=== PATIENT | male | born 1970 | race Hispanic/Latino ===

== ENCOUNTER 2016-09-29 11:42 | Emergency (ER) | payer MEDICAID ==
[2016-09-29 12:44] VITALS: BP 137/91
--- NOTE | 2016-09-29 13:20 | Cat Scan Report ---
CT HEAD WITHOUT CONTRAST: HISTORY: Head injury. Serial contiguous axial images were obtained through the cranium. Intravenous contrast material was not administered. The ventricles are normal in size and appearance. There is no mass effect or midline shift. No areas of abnormally increased or decreased attenuation are seen. No mass lesion is seen. The mastoid air cells and visualized portions of the sinuses are normal. IMPRESSION: Cranial CT scan within normal limits.
[2016-09-29] MEDS ORDERED: TORADOL IM ONE (14:33)
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
== END 2016-09-29 14:53 | disposition home or self-care (01) ==
LOC: ED 11:42
DX: S00.83XA Contusion of other part of head, initial encounter (principal); Y04.0XXA Assault by unarmed brawl or fight, initial encounter; Y93.89 Activity, other specified; Y92.89 Other specified places as the place of occurrence of the external cause; Y99.8 Other external cause status; Z88.8 Allergy status to other drugs, medicaments and biological substances
CPT/HCPCS: 70450; 96372; 99283; J1885

== ENCOUNTER 2016-12-27 12:23 | Emergency (ER) | payer MEDICAID ==
[2016-12-27] MEDS ORDERED: NACL 0.9% 1000 ML 1,000 ML IV ONE (13:08)
[2016-12-27] MEDS ORDERED: ZOFRAN IV ONE (13:08)
--- NOTE | 2016-12-27 13:19 | Emergency Department Report ---
- General Chief Complaint: Upper Respiratory Infection Stated Complaint: FLU Time Seen by Provider: 12/27/16 12:49 Source: patient Mode of arrival: Ambulatory Limitations: No Limitations - History of Present Illness Initial Comments: This is a 46-year-old male nontoxic, well nourished in appearance, no acute signs of distress presents to the ED with c/o of productive cough, rhinorrhea, sore throat, body aches with nausea and vomiting x1 week. Patient denies any chest pain, hemoptysis, calf pain, calf tenderness, shortness of breathe, wheezing, numbness, tingling, fever, chills, headache, n/v, back pain, abdominal pain, dyruia. Patient denies sick contact. Patient denies any long car rides, recent hospital stays, or recent travels. Patient stated he get nausea and vomits only during coughing episode. Patient describes productive cough as yellow mucus production. Patient states allergies to Risperdal and haloperidol. PMH includes crow. MD Complaint: cough, sore throat, rhinorrhea, nasal congestion -: Gradual, week(s) (1) Severity: mild Severity scale (0 -10): 8 Quality: aching Consistency: constant Improves With: nothing Worsens With: nothing Associated Symptoms: denies other symptoms, rhinorrhea, nasal congestion, sore throat, cough. denies: fever, chills, myalgias, diaphoresis, headache, stiff neck, chest pain, shortness of breath, abdominal pain, nausea, vomiting, diarrhea, dysuria, rash, confusion, right sweats, weight loss, epistaxis, hoarseness, ear pain Treatments Prior to Arrival: none - Related Data Previous Rx's Medication Instructions Recorded Last Taken Type Ibuprofen [Motrin] 800 mg PO Q8HR PRN #20 tablet 09/29/16 Unknown Rx RX: Acetaminophen/Codeine [Tylenol 1 tab PO Q6H PRN #14 tab 09/29/16 Unknown Rx /Codeine # 3 tab] Benzonatate [Tessalon Perle] 100 mg PO Q8H #20 capsule 12/27/16 Unknown Rx Ondansetron [Zofran Odt] 4 mg PO Q8HR PRN #15 tab.rapdis 12/27/16 Unknown Rx RX: Azithromycin [Zithromax Z-JOYCE] 250 mg PO DAILY #6 tablet 12/27/16 Unknown Rx Allergies Allergy/AdvReac Type Severity Reaction Status Date / Time risperidone [From Risperdal] Allergy Angioedema Verified 09/29/16 12:37 haloperidol AdvReac Angioedema Verified 09/29/16 12:40 ED Review of Systems ROS: Stated complaint: FLU Other details as noted in HPI Constitutional: denies: chills, fever Eyes: denies: eye pain, eye discharge, vision change ENT: throat pain. denies: ear pain Respiratory: cough. denies: shortness of breath, wheezing Cardiovascular: denies: chest pain, palpitations Endocrine: no symptoms reported Gastrointestinal: denies: abdominal pain, nausea, diarrhea Genitourinary: denies: urgency, dysuria Musculoskeletal: denies: back pain, joint swelling, arthralgia Skin: denies: rash, lesions Neurological: denies: headache, weakness, paresthesias Psychiatric: denies: anxiety, depression Hematological/Lymphatic: denies: easy bleeding, easy bruising ED Past Medical Hx - Past Medical History Previous Medical History?: Yes Hx Psychiatric Treatment: Yes - Surgical History Past Surgical History?: No - Social History Smoking Status: Current Every Day Smoker Substance Use Type: None - Medications Home Medications: Home Medications Medication Instructions Recorded Confirmed Last Taken Type Ibuprofen [Motrin] 800 mg PO Q8HR PRN #20 tablet 09/29/16 Unknown Rx RX: Acetaminophen/Codeine [Tylenol 1 tab PO Q6H PRN #14 tab 09/29/16 Unknown Rx /Codeine # 3 tab] Benzonatate [Tessalon Perle] 100 mg PO Q8H #20 capsule 12/27/16 Unknown Rx Ondansetron [Zofran Odt] 4 mg PO Q8HR PRN #15 tab.rapdis 12/27/16 Unknown Rx RX: Azithromycin [Zithromax Z-JOYCE] 250 mg PO DAILY #6 tablet 12/27/16 Unknown Rx ED Physical Exam - General Limitations: No Limitations General appearance: alert, in no apparent distress - Head Head exam: Present: atraumatic, normocephalic, normal inspection - Eye Eye exam: Present: normal appearance, PERRL, EOMI. Absent: scleral icterus, conjunctival injection, nystagmus, periorbital swelling, periorbital tenderness Pupils: Present: normal accommodation - ENT ENT exam: Present: mucous membranes moist, TM's normal bilaterally, normal external ear exam - Expanded ENT Exam Expanded Ear exam: Present: normal external inspection Mouth exam: Present: normal external inspection, tongue normal. Absent: drooling, trismus, muffled voice, tongue elevation, laceration Teeth exam: Present: normal inspection Throat exam: Positive: tonsillar erythema, other (Uvula midline. No abscess or swelling noted. ). Negative: tonsillomegaly, tonsillar exudate, R peritonsillar mass, L peritonsillar mass - Neck Neck exam: Present: normal inspection, full ROM. Absent: tenderness, meningismus, lymphadenopathy, thyromegaly - Respiratory Respiratory exam: Present: normal lung sounds bilaterally. Absent: respiratory distress, wheezes, rales, rhonchi, stridor, chest wall tenderness, accessory muscle use, decreased breath sounds, prolonged expiratory - Cardiovascular Cardiovascular Exam: Present: regular rate, normal rhythm, normal heart sounds. Absent: irregular rhythm, systolic murmur, diastolic murmur, rubs, gallop - GI/Abdominal GI/Abdominal exam: Present: soft, normal bowel sounds. Absent: distended, tenderness, guarding, rebound, rigid, diminished bowel sounds - Expanded GI/Abdominal Exam Expanded GI/Abdominal exam: Absent: psoas sign, obturator sign, heel tap sign, Calderon's sign, Rovsing's sign, tenderness at Mcburney's Point - Rectal Rectal exam: Present: deferred - Extremities Exam Extremities exam: Present: normal inspection, full ROM, normal capillary refill. Absent: tenderness, pedal edema, joint swelling, calf tenderness - Back Exam Back exam: Present: normal inspection, full ROM. Absent: tenderness, CVA tenderness (R), CVA tenderness (L), muscle spasm, paraspinal tenderness, vertebral tenderness, rash noted - Neurological Exam Neurological exam: Present: alert, oriented X3, CN II-XII intact, normal gait, reflexes normal - Psychiatric Psychiatric exam: Present: normal affect, normal mood - Skin Skin exam: Present: warm, dry, intact, normal color. Absent: rash - Other Other exam information: Negative holmans test. No calf pain or tenderness. ED Course Vital Signs 12/27/16 12/27/16 12/27/16 12:34 14:29 14:32 Temperature 99.1 F 99.6 F Pulse Rate 111 H 86 Respiratory 16 Rate Blood Pressure 138/95 114/82 O2 Sat by Pulse 95 96 Oximetry - Reevaluation(s) Reevaluation #1: 12/27/16 13:21 Patient is speaking in full sentences with no signs of distress noted. ED Medical Decision Making - Lab Data Result diagrams: 12/27/16 13:22 12/27/16 13:22 - Medical Decision Making This is a 46-year-old male that presents with n/v and upper resp infection. Patient was examined by me and patient is stable. Xray has been obtained and dictated by radiologist with normal exam. Patient received 1L of Normal saline which heart rate decreased before d/c. No signs or symptoms of wheezing, calf pain, calf tenderness. No hemaotysis. Patient also received Zofran and PO challenge obtained with no signs of nausea or vomiting. Patient will be treated with zpak at d/c. Patient also received zofran at d/c. Patient was instructed to follow-up with a Primary care doctor in 24 hours or if symptoms worsen such as shortness of breathe, difficulty breathing, or any worsening as symptoms he must return to the ED as soon as possible. At time time of discharge, the patient does not seem toxic or ill in appearance. No acute signs of distress noted. Patient agrees to discharge treatment plan of care. No further questions noted by the patient. Patient was also instructed to increase hydration. Influanza swab negative. Critical care attestation.: If time is entered above; I have spent that time in minutes in the direct care of this critically ill patient, excluding procedure time. ED Disposition Clinical Impression: Upper respiratory infection Qualifiers: URI type: unspecified URI Qualified Code(s): J06.9 - Acute upper respiratory infection, unspecified Disposition: DC-01 TO HOME OR SELFCARE Is pt being admited?: No Does the pt Need Aspirin: No Condition: Stable Instructions: Azithromycin (By mouth), Liquids and Hydration for Athletes (ED) , Upper Respiratory Infection (ED), Benzonatate (By mouth), Ondansetron ( Injection) Additional Instructions: Follow-up with a Primary care doctor in 24 hours or if symptoms worsen such as shortness of breathe, difficulty breathing, or any worsening as symptoms you must return to the ED as soon as possible Increase hydration. Prescriptions: RX: Azithromycin [Zithromax Z-JOYCE] 250 mg PO DAILY #6 tablet Benzonatate [Tessalon Perle] 100 mg PO Q8H #20 capsule Ondansetron [Zofran Odt] 4 mg PO Q8HR PRN #15 tab.rapdis PRN Reason: Nausea Referrals: JOLEEN TRIPP MD [Staff Physician] - 3-5 Days PRIMARY CARE, [Primary Care Provider] - 3-5 Days [facility] [Outside] - 3-5 Days [facility] [Outside] - 3-5 Days Forms: Work/School Release Form(ED)
[2016-12-27 14:04] LABS: Albumin 3.1 g/dL (3.9-5); BUN/Creatinine Ratio 10; Blood Urea Nitrogen 8 mg/dL (9-20); Calcium 7.7 mg/dL (8.4-10.2); Carbon Dioxide 19 mmol/L (22-30); Chloride 103.2 mmol/L (98-107); Glucose 94 mg/dL (75-100); Sodium 137 mmol/L (137-145); Total Protein 6.2 g/dL (6.3-8.2)
[2016-12-27 14:05] LABS: Alanine Aminotransferase 10 units/L (7-56); Anion Gap 20 mmol/L
[2016-12-27 14:06] LABS: Alkaline Phosphatase 76 units/L (35-129); Potassium 5.3 mmol/L (3.6-5.0)
[2016-12-27 14:20] LABS: Hemoglobin 13.9 gm/dl (11.8-15.2); Red Blood Count 4.47 M/mm3 (3.65-5.03); White Blood Count 8.5 K/mm3 (4.5-11.0)
[2016-12-27 14:21] LABS: Basophils % (Auto) 1.1 % (0.0-1.8); Hematocrit 41.3 % (35.5-45.6); Mean Corpuscular HGB Conc 34 % (32-34); Mean Corpuscular Hemoglobin 31 pg (28-32); Mean Corpuscular Volume 92 fl (84-94); Red Cell Distribution Width 12.7 % (13.2-15.2)
[2016-12-27 14:32] VITALS: BP 114/82
--- NOTE | 2016-12-27 14:44 | XRay Report ---
Chest 2 views: History: Productive cough. Findings: Normal cardiomediastinal silhouette. Trachea is midline. No consolidation, pneumothorax or pleural effusion. Impression: No acute cardiopulmonary findings.
[2016-12-27 15:12] LABS: Platelet Count 221 K/mm3 (140-440)
== END 2016-12-27 15:25 | disposition home or self-care (01) ==
LOC: ED 12:23
DX: J06.9 Acute upper respiratory infection, unspecified (principal); F17.200 Nicotine dependence, unspecified, uncomplicated; Z88.8 Allergy status to other drugs, medicaments and biological substances
CPT/HCPCS: 36415; 71020; 80053; 85025; 87400; 96361; 96374; 99284; J2405; J7030

== ENCOUNTER 2017-03-29 11:06 | Emergency (ER) | payer MEDICAID ==
[2017-03-29 12:16] VITALS: BP 100/70
[2017-03-29] MEDS ORDERED: KEPPRA PO ONE (13:26)
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
== END 2017-03-29 13:45 | disposition home or self-care (01) ==
LOC: ED 11:06
DX: Z76.0 Encounter for issue of repeat prescription (principal); F17.200 Nicotine dependence, unspecified, uncomplicated
CPT/HCPCS: 99282

== ENCOUNTER 2017-05-13 11:21 | Emergency (ER) | payer MEDICAID ==
[2017-05-13 11:32] VITALS: BP 141/113
[2017-05-13 12:52] LABS: Bilirubin,Urine NEG (Negative); Blood,Urine NEG (Negative); Color,Urine Yellow (Yellow); Mucus,Urine FEW /HPF; Protein,Urine <15 mg/dL mg/dL (Negative); Urobilinogen,Urine < 2.0 mg/dL (<2.0)
== END 2017-05-13 12:15 | disposition left against medical advice (07) ==
LOC: ED 11:21
DX: R11.2 Nausea with vomiting, unspecified (principal); Z53.21 Procedure and treatment not carried out due to patient leaving prior to being seen by health care provider
CPT/HCPCS: 81001

== ENCOUNTER 2017-05-14 05:31 | Emergency (ER) | payer MEDICAID ==
[2017-05-14 06:35] LABS: Basophils % (Auto) 0.6 % (0.0-1.8); Eosinophils # (Auto) 0.1 K/mm3 (0.0-0.4); Eosinophils % (Auto) 1.3 % (0.0-4.3); Hematocrit 46.6 % (35.5-45.6); Hemoglobin 15.7 gm/dl (11.8-15.2); Lymphocytes # (Auto) 1.7 K/mm3 (1.2-5.4); Lymphocytes % (Auto) 20.7 % (13.4-35.0); Mean Corpuscular HGB Conc 34 % (32-34); Mean Corpuscular Hemoglobin 31 pg (28-32); Mean Corpuscular Volume 93 fl (84-94); Monocytes # (Auto) 0.4 K/mm3 (0.0-0.8); Monocytes % (Auto) 5.2 % (0.0-7.3); Platelet Count 216 K/mm3 (140-440); Red Blood Count 5.02 M/mm3 (3.65-5.03); Red Cell Distribution Width 13.3 % (13.2-15.2)
[2017-05-14 06:52] LABS: Alanine Aminotransferase 12 units/L (7-56); Albumin 3.9 g/dL (3.9-5); BUN/Creatinine Ratio 11; Blood Urea Nitrogen 10 mg/dL (9-20); Calcium 8.7 mg/dL (8.4-10.2); Hemolysis Index 13; Lipase 31 units/L (13-60)
[2017-05-14] MEDS ORDERED: ZOFRAN IV ONE (07:57)
[2017-05-14] MEDS ORDERED: NACL 0.9% 1000 ML 1,000 ML IV ONE (07:57)
--- NOTE | 2017-05-14 07:57 | Emergency Department Report ---
ED General Adult HPI - General Chief complaint: Nausea/Vomiting/Diarrhea Stated complaint: NAUSEA,VOMITING Time Seen by Provider: 05/14/17 07:54 Source: patient, EMS Mode of arrival: Stretcher Limitations: No Limitations - Related Data Previous Rx's Medication Instructions Recorded Last Taken Type Acetaminophen/Codeine [Tylenol 1 tab PO Q6H PRN #14 tab 09/29/16 Unknown Rx /Codeine # 3 tab] Ibuprofen [Motrin] 800 mg PO Q8HR PRN #20 tablet 09/29/16 Unknown Rx Azithromycin [Zithromax Z-JOYCE] 250 mg PO DAILY #6 tablet 12/27/16 Unknown Rx Benzonatate [Tessalon Perle] 100 mg PO Q8H #20 capsule 12/27/16 Unknown Rx Ondansetron [Zofran Odt] 4 mg PO Q8HR PRN #15 tab.rapdis 12/27/16 Unknown Rx Quetiapine Fumarate [Seroquel] 300 mg PO BID #30 tablet 03/29/17 Unknown Rx Allergies Allergy/AdvReac Type Severity Reaction Status Date / Time risperidone [From Risperdal] Allergy Angioedema Verified 09/29/16 12:37 haloperidol AdvReac Angioedema Verified 09/29/16 12:40 ED Review of Systems ROS: Stated complaint: NAUSEA,VOMITING Other details as noted in HPI ED Past Medical Hx - Past Medical History Previous Medical History?: Yes Hx Seizures: Yes Hx Psychiatric Treatment: Yes Additional medical history: Schizophrenia, PTSD - Surgical History Hx Appendectomy: Yes - Social History Smoking Status: Current Every Day Smoker Substance Use Type: Alcohol - Medications Home Medications: Home Medications Medication Instructions Recorded Confirmed Last Taken Type Acetaminophen/Codeine [Tylenol 1 tab PO Q6H PRN #14 tab 09/29/16 Unknown Rx /Codeine # 3 tab] Ibuprofen [Motrin] 800 mg PO Q8HR PRN #20 tablet 09/29/16 Unknown Rx Azithromycin [Zithromax Z-JOYCE] 250 mg PO DAILY #6 tablet 12/27/16 Unknown Rx Benzonatate [Tessalon Perle] 100 mg PO Q8H #20 capsule 12/27/16 Unknown Rx Ondansetron [Zofran Odt] 4 mg PO Q8HR PRN #15 tab.rapdis 12/27/16 Unknown Rx Quetiapine Fumarate [Seroquel] 300 mg PO BID #30 tablet 03/29/17 Unknown Rx ED Physical Exam - General Limitations: No Limitations ED Course Vital Signs 05/14/17 05:42 Temperature 97.6 F Pulse Rate 108 H Respiratory 16 Rate Blood Pressure 109/82 O2 Sat by Pulse 97 Oximetry ED Medical Decision Making - Lab Data Result diagrams: 05/14/17 05:49 05/14/17 05:49 Laboratory Results - last 24 hr 05/14/17 05/14/17 05/14/17 05:49 05:49 05:49 WBC 8.1 RBC 5.02 Hgb 15.7 H Hct 46.6 H MCV 93 MCH 31 MCHC 34 RDW 13.3 Plt Count 216 Lymph % (Auto) 20.7 [place] % (Auto) 5.2 Eos % (Auto) 1.3 Baso % (Auto) 0.6 Lymph # 1.7 [place] # 0.4 Eos # 0.1 Baso # 0.0 Seg Neutrophils % 72.2 H Seg Neutrophils # 5.9 Sodium 140 Potassium 3.8 Chloride 104.1 Carbon Dioxide 19 L Anion Gap 21 BUN 10 Creatinine 0.9 Estimated GFR > 60 BUN/Creatinine Ratio 11 Glucose 107 H Calcium 8.7 Total Bilirubin 0.20 AST 15 ALT 12 Alkaline Phosphatase 97 Total Protein 7.0 Albumin 3.9 Albumin/Globulin Ratio 1.3 Lipase 31 Plasma/Serum Alcohol < 0.01 Critical care attestation.: If time is entered above; I have spent that time in minutes in the direct care of this critically ill patient, excluding procedure time. ED Disposition Condition: Stable
[2017-05-14] MEDS ORDERED: TORADOL IV ONE (08:06)
--- NOTE | 2017-05-14 08:11 | Emergency Department Report ---
ED Abdominal Pain HPI - General Chief Complaint: Nausea/Vomiting/Diarrhea Stated Complaint: NAUSEA,VOMITING Time Seen by Provider: 05/14/17 07:54 Source: patient, EMS Mode of arrival: Stretcher Limitations: No Limitations - History of Present Illness Initial Comments: This is a 46-year-old male nontoxic, well nourished in appearance, no acute signs of distress presents to the ED with c/o of nausea, vomiting, and abdominal pain 5 days. Patient stated he started to feel better last night and decided to go to a bar to have a drink and then vomiting has started again. Patient stated he vomited food contents that about 5-7 times. Patient denies decreased by mouth intake or unable to tolerate food or fluids. Denies any chest pain, shortness of breath, back pain, fever, chills, headache, stiff neck , numbness, tingling. Past medical history includes schizophrenia, PTSD, and seizures. Surgical history of appendectomy. Patient states allergies to Risperidone and haloperidol. Denies any recent travels or long car rides. Last bowel movement this morning and no blood consistency. MD Complaint: abdominal pain -: days(s) (5) Location: diffuse Radiation: none Migration to: no migration Severity: mild Severity scale (0 -10): 8 Quality: aching Consistency: intermittent Improves With: nothing Worsens With: nothing Associated Symptoms: nausea, vomiting. denies: diarrhea, fever, chills, constipation, dysuria, hematemesis, hematochezia, melena, hematuria, anorexia, syncope - Related Data Previous Rx's Medication Instructions Recorded Last Taken Type Acetaminophen/Codeine [Tylenol 1 tab PO Q6H PRN #14 tab 09/29/16 Unknown Rx /Codeine # 3 tab] Ibuprofen [Motrin] 800 mg PO Q8HR PRN #20 tablet 09/29/16 Unknown Rx Azithromycin [Zithromax Z-JOYCE] 250 mg PO DAILY #6 tablet 12/27/16 Unknown Rx Benzonatate [Tessalon Perle] 100 mg PO Q8H #20 capsule 12/27/16 Unknown Rx Ondansetron [Zofran Odt] 4 mg PO Q8HR PRN #15 tab.rapdis 12/27/16 Unknown Rx Quetiapine Fumarate [Seroquel] 300 mg PO BID #30 tablet 03/29/17 Unknown Rx Ondansetron [Zofran Odt] 4 mg PO Q8HR PRN #15 tab.rapdis 05/14/17 Unknown Rx Allergies Allergy/AdvReac Type Severity Reaction Status Date / Time risperidone [From Risperdal] Allergy Angioedema Verified 05/14/17 08:42 haloperidol AdvReac Angioedema Verified 05/14/17 08:42 ED Review of Systems ROS: Stated complaint: NAUSEA,VOMITING Other details as noted in HPI Constitutional: denies: chills, fever Eyes: denies: eye pain, eye discharge, vision change ENT: denies: ear pain, throat pain Respiratory: denies: cough, shortness of breath, wheezing Cardiovascular: denies: chest pain, palpitations Endocrine: no symptoms reported Gastrointestinal: abdominal pain, nausea, vomiting. denies: diarrhea, constipation Genitourinary: denies: urgency, dysuria Musculoskeletal: denies: back pain, joint swelling, arthralgia Skin: denies: rash, lesions Neurological: denies: headache, weakness, paresthesias Psychiatric: denies: anxiety, depression Hematological/Lymphatic: denies: easy bleeding, easy bruising ED Past Medical Hx - Past Medical History Previous Medical History?: Yes Hx Seizures: Yes Hx Psychiatric Treatment: Yes Additional medical history: Schizophrenia, PTSD - Surgical History Hx Appendectomy: Yes - Social History Smoking Status: Current Every Day Smoker Substance Use Type: Alcohol - Medications Home Medications: Home Medications Medication Instructions Recorded Confirmed Last Taken Type Acetaminophen/Codeine [Tylenol 1 tab PO Q6H PRN #14 tab 09/29/16 Unknown Rx /Codeine # 3 tab] Ibuprofen [Motrin] 800 mg PO Q8HR PRN #20 tablet 09/29/16 Unknown Rx Azithromycin [Zithromax Z-JOYCE] 250 mg PO DAILY #6 tablet 12/27/16 Unknown Rx Benzonatate [Tessalon Perle] 100 mg PO Q8H #20 capsule 12/27/16 Unknown Rx Ondansetron [Zofran Odt] 4 mg PO Q8HR PRN #15 tab.rapdis 12/27/16 Unknown Rx Quetiapine Fumarate [Seroquel] 300 mg PO BID #30 tablet 03/29/17 Unknown Rx Ondansetron [Zofran Odt] 4 mg PO Q8HR PRN #15 tab.rapdis 05/14/17 Unknown Rx ED Physical Exam - General Limitations: No Limitations General appearance: alert, in no apparent distress - Head Head exam: Present: atraumatic, normocephalic - Eye Eye exam: Present: normal appearance Pupils: Present: normal accommodation - ENT ENT exam: Present: normal exam, normal orophraynx, mucous membranes moist - Neck Neck exam: Present: normal inspection, full ROM. Absent: tenderness, meningismus, lymphadenopathy - Respiratory Respiratory exam: Present: normal lung sounds bilaterally. Absent: respiratory distress, wheezes, rales, rhonchi, stridor, chest wall tenderness, accessory muscle use, decreased breath sounds, prolonged expiratory - Cardiovascular Cardiovascular Exam: Present: regular rate, normal rhythm, normal heart sounds. Absent: irregular rhythm, systolic murmur, diastolic murmur, rubs, gallop - GI/Abdominal GI/Abdominal exam: Present: soft, tenderness (diffuse with more on RLQ), normal bowel sounds. Absent: distended, guarding, rebound, rigid, diminished bowel sounds, hyperactive bowel sounds, hypoactive bowel sounds, bruit - Expanded GI/Abdominal Exam Expanded GI/Abdominal exam: Absent: psoas sign, obturator sign, heel tap sign, Calderon's sign, Rovsing's sign, tenderness at Mcburney's Point, ascites - Rectal Rectal exam: Present: deferred - Extremities Exam Extremities exam: Present: normal inspection, full ROM, normal capillary refill - Back Exam Back exam: Present: normal inspection, full ROM - Neurological Exam Neurological exam: Present: alert, oriented X3, normal gait - Psychiatric Psychiatric exam: Present: normal affect, normal mood - Skin Skin exam: Present: warm, dry, intact, normal color. Absent: rash ED Course Vital Signs 05/14/17 05/14/17 05/14/17 05:42 09:06 09:08 Temperature 97.6 F 98.3 F Pulse Rate 108 H 91 H Respiratory 16 12 12 Rate Blood Pressure 109/82 Blood Pressure 122/80 [Right] O2 Sat by Pulse 97 98 98 Oximetry - Reevaluation(s) Reevaluation #1: 05/14/17 08:14 Patient is speaking in full sentences with no signs of distress noted. - Consultations Consultation #1: 05/14/17 08:14 Patient has been consulted with Dr. Cervantes about patient history, physical exam, and labs and agrees to ED plan of care. ED Medical Decision Making - Lab Data Result diagrams: 05/14/17 05:49 05/14/17 05:49 - Medical Decision Making This is a 47-year-old male that presents with abdominal pain, nausea vomiting. Patient is stable and was examined by me. Labs obtained within normal limits. UA obtained with positive methadone and marijuana. Patient received 1 L normal saline and Zofran which based symptoms has resolved. A by mouth challenge of apple juice 4 obtained and patient tolerated well with no nausea or vomiting. CT of abdomen/pelvis with contrast obtained and dictated by the radiologist within normal limits. Patient was instructed to increase hydration. Patient is discharged with Zofran. Patient was instructed referred to Follow-up with a primary care doctor in 3-5 days or if symptoms worsen and continue return to emergency room as soon as possible. At time of discharge, the patient does not seem toxic or ill in appearance. No acute signs of distress noted. Patient agrees to discharge treatment plan of care. No further questions noted by the patient. Critical care attestation.: If time is entered above; I have spent that time in minutes in the direct care of this critically ill patient, excluding procedure time. ED Disposition Clinical Impression: Abdominal pain Qualifiers: Abdominal location: generalized Qualified Code(s): R10.84 - Generalized abdominal pain Nausea and vomiting Qualifiers: Vomiting type: unspecified Vomiting Intractability: unspecified Qualified Code( s): R11.2 - Nausea with vomiting, unspecified Disposition: DC-01 TO HOME OR SELFCARE Is pt being admited?: No Does the pt Need Aspirin: No Condition: Stable Instructions: Abdominal Pain (ED), Acute Nausea and Vomiting (ED) Additional Instructions: Follow-up with a primary care doctor in 3-5 days or if symptoms worsen and continue return to emergency room as soon as possible. Prescriptions: Ondansetron [Zofran Odt] 4 mg PO Q8HR PRN #15 tab.rapdis PRN Reason: Nausea Referrals: PRIMARY CARE, [Primary Care Provider] - 3-5 Days JOLEEN TRIPP MD [Staff Physician] - 3-5 Days [facility] [Outside] - 3-5 Days [facility] [Outside] - 3-5 Days Forms: Work/School Release Form(ED)
[2017-05-14] MEDS ORDERED: NACL ONE (08:26)
[2017-05-14 08:49] LABS: Bilirubin,Urine NEG (Negative); Blood,Urine NEG (Negative); Color,Urine Yellow (Yellow); Mucus,Urine FEW /HPF; Urobilinogen,Urine < 2.0 mg/dL (<2.0); WBC,Urine < 1.0 /HPF (0.0-6.0)
[2017-05-14 09:03] LABS: Amphetamine Screen,Urine PRESUMPTIVE NEGATIVE; Benzodiazepines Screen,Urine PRESUMPTIVE NEGATIVE; Cocaine Screen,Urine PRESUMPTIVE NEGATIVE; Opiate Screen,Urine PRESUMPTIVE NEGATIVE
[2017-05-14 09:09] VITALS: BP 122/80
--- NOTE | 2017-05-14 09:12 | Cat Scan Report ---
FINAL REPORT EXAM: CT ABDOMEN PELVIS W CON HISTORY: abd pain TECHNIQUE: CT abdomen and pelvis performed. Images extend from diaphragm to pubic symphysis. 100 cc Omnipaque 300 IV was administered. No oral contrast was administered. Coronal and sagittal reformatted images were obtained. PRIORS: None. FINDINGS: The visualized aspects of the lung bases are clear. The visualized liver, spleen, pancreas, adrenal glands and kidneys demonstrate no significant abnormalities. There is no abdominal aortic aneurysm. There is no evidence of intestinal obstruction. Appendix not visualized. Patient likely status post appendectomy. There are no abnormal fluid collections seen. There is no evidence of focal or diffuse inflammatory abnormality. There is no free intraperitoneal air. The bladder is unremarkable. There is no abnormal pelvic mass or fluid collections seen. IMPRESSION: There is no acute abnormality identified.
[2017-05-14 09:23] LABS: Cannabinoid Screen,Urine PRESUMPTIVE POSITIVE; Methadone Screen,Urine PRESUMPTIVE POSITIVE
== END 2017-05-14 10:02 | disposition home or self-care (01) ==
LOC: ED 05:31
DX: R11.2 Nausea with vomiting, unspecified (principal); R10.84 Generalized abdominal pain; F17.200 Nicotine dependence, unspecified, uncomplicated; Z88.8 Allergy status to other drugs, medicaments and biological substances
CPT/HCPCS: 36415; 74177; 80053; 80307; 81001; 83690; 85025; 96361; 96374; 96375; 99284; G0480; J1885; J2405; J7030; Q9967; 80320

== ENCOUNTER 2017-09-05 19:21 | Emergency (ER) | payer MEDICAID ==
[2017-09-05] MEDS ORDERED: KEPPRA 1,000 MG/NS 0.75% 100ML 1,000 MG/100 ML BAG IV ONE (20:00)
[2017-09-05] MEDS ORDERED: ATIVAN IV ONE (20:00)
[2017-09-05] MEDS ORDERED: ATIVAN IV PRN (20:01)
[2017-09-05] MEDS ORDERED: LIBRIUM PO PRN (20:01)
--- NOTE | 2017-09-05 20:02 | Emergency Department Report ---
ED General Adult HPI - General Chief complaint: Seizure Stated complaint: SEIZURE Time Seen by Provider: 09/05/17 19:51 Source: patient, EMS (ems notes not available at time of chart dictation), RN notes reviewed Mode of arrival: Ambulatory Limitations: No Limitations, Other (patient has a chronic right upper extremity tremor) - History of Present Illness Initial comments: This is a 47-year-old male who is unknown to this provider previously. He reports a past medical history of seizure disorder, and reports taking Keppra, 500 mg twice daily. He also reports a history of alcohol abuse. His last drink was 2 weeks ago. He presents to the ER with a complaint of seizure. Patient reports that he was at [place], and began to have a seizure. His last seizure was a few days ago. He reports 45 seizures in the past 2 months. He endorses medication compliance. He denies headache and neck pain. He denies chest pain and abdominal pain. He denies urinary symptoms. He reports he is seeing a neurologist specialist in [place] but can't recall the name of that specialist. He denies irritative/obstructive urinary symptoms. EMS gave 2 mg of Ativan IV in the field which terminated his seizure. He complains of right paralumbar and paraspinal back pain where he landed from his fall from seizing. -: Sudden Location: back Radiation: non-radiation Quality: aching Consistency: intermittent Improves with: rest Worsens with: movement Associated Symptoms: malaise, weakness (global). denies: confusion, chest pain , cough, diaphoresis, fever/chills, headaches, loss of appetite, nausea/vomiting , rash, seizure, shortness of breath, syncope - Related Data Home Medications Medication Instructions Recorded Confirmed Last Taken clonazePAM [Klonopin] 0.5 mg PO QID 09/05/17 09/05/17 Unknown levETIRAcetam [Keppra] 500 mg PO BID 09/05/17 09/05/17 Unknown Allergies Allergy/AdvReac Type Severity Reaction Status Date / Time No Known Allergies Allergy Unverified 09/05/17 19:22 ED Review of Systems ROS: Stated complaint: SEIZURE Other details as noted in HPI Constitutional: malaise Eyes: denies: eye discharge ENT: denies: epistaxis Respiratory: denies: cough Cardiovascular: denies: chest pain, syncope Gastrointestinal: denies: vomiting Genitourinary: denies: dysuria Musculoskeletal: back pain, arthralgia Skin: denies: lesions Neurological: weakness Psychiatric: anxiety ED Past Medical Hx - Past Medical History Previous Medical History?: Yes Additional medical history: Pt unable to communicate to answer questions during triage - Social History Smoking Status: Current Every Day Smoker Substance Use Type: Alcohol - Medications Home Medications: Home Medications Medication Instructions Recorded Confirmed Last Taken Type clonazePAM [Klonopin] 0.5 mg PO QID 09/05/17 09/05/17 Unknown History levETIRAcetam [Keppra] 500 mg PO BID 09/05/17 09/05/17 Unknown History ED Physical Exam - General Limitations: No Limitations General appearance: alert, anxious - Head Head exam: Present: atraumatic, normocephalic - Eye Eye exam: Present: normal appearance, PERRL, EOMI, other (visual acuity intact to finger counting, color perception, reading at a close distance). Absent: nystagmus - ENT ENT exam: Present: normal exam, normal orophraynx, mucous membranes moist, TM's normal bilaterally, normal external ear exam, other (negative nasal septal hematoma) - Neck Neck exam: Present: normal inspection, full ROM. Absent: tenderness, meningismus - Respiratory Respiratory exam: Present: normal lung sounds bilaterally. Absent: respiratory distress - Cardiovascular Cardiovascular Exam: Present: regular rate, normal rhythm, normal heart sounds. Absent: bradycardia, tachycardia, irregular rhythm, systolic murmur, diastolic murmur, rubs, gallop - GI/Abdominal GI/Abdominal exam: Present: soft, normal bowel sounds. Absent: distended, tenderness, guarding, rebound, rigid, pulsatile mass - Rectal Rectal exam: Present: deferred - Extremities Exam Extremities exam: Present: normal inspection, full ROM, normal capillary refill , other (2+ pulses noted in the bilateral upper, lower extremities. Compartments soft. No long bony tenderness. The pelvis is stable.). Absent: pedal edema, joint swelling, calf tenderness - Back Exam Back exam: Present: normal inspection, full ROM, paraspinal tenderness. Absent : vertebral tenderness - Neurological Exam Neurological exam: Present: alert (patient has a chronic right upper extremity tremor), oriented X3, CN II-XII intact, other (Extraocular movements intact. Tongue midline. No facial droop. Facial sensation intact to light touch in the V1, V2, V3 distribution bilaterally. 5 and 5 strength in 4 extremities.. Sensation is intact to light touch in 4 extremities.). Absent: motor sensory deficit - Psychiatric Psychiatric exam: Present: normal affect, normal mood - Skin Skin exam: Present: warm, dry, intact, normal color. Absent: rash ED Course Vital Signs 09/05/17 09/05/17 21:09 21:24 Temperature 98.7 F Pulse Rate 91 H Respiratory 20 20 Rate Blood Pressure 118/77 [Left] O2 Sat by Pulse 98 Oximetry - Reevaluation(s) Reevaluation #1: 09/05/17 20:59 Differential diagnosis, including but not limited to: Intracranial injury, concussion, breakthrough seizure, urinary tract infection, electrolyte derangement, chronic right upper extremity tremor Assessment and plan: 47-year-old male with a breakthrough seizure, currently on antiepileptic drug therapy. He does not have tongue fasciculations. He is not diaphoretic, febrile or specially hypertensive. His last consumed alcohol was almost 2 weeks ago. This is unlikely to be alcohol withdrawal. A noncontrast CT scan of the brain is negative. Laboratory studies, EKG pending at this time. Patient will be treated empirically with 1 g of Keppra, his back pain which relieved with Toradol, he will be given a banana bag, and he 'll be started empirically on the ciwa protocol Reevaluation #2: 09/05/17 22:19 Patient acting somewhat bizarrely. Standing up in the room, asking about a telephone. When I asked him about this, his answer does not make any sense. He indicates he is looking for Dr. Cunha. He then indicates he is looking for Dr. Emanuel Perez. He seems to be quite disorganized. He's been awake the whole time, and while awake, has had some nonspecific shaking. However, during the shaking, he converses quite clearly. Possible postictal state versus psychiatric components. We will obtain psychiatric consultation and evaluation. We will also obtain a case management consult to assist in placement. Patient does not meet criteria for medical admission at this time. 09/05/17 22:22 Reevaluation #3: 09/05/17 23:31 Patient has another medical record number; [id number] Apparently has a history of schizophrenia, PTSD. Psychiatric consult is pending at this time. Reevaluation #4: 09/06/17 01:17 Patient continues to exhibit disorganized behavior. Furthermore, he endorsed to the crisis counselor, Mr. Gilson Goldsmith, and he was feeling suicidal. He is therefore placed on a 1013. No additional convulsive events or seizures have been noted. Vital signs have been appropriate and within normal limits. At this point in time, there is not appear to be an immediate medical contraindication to psychiatric admission, evaluation, consultation and placement. ED Medical Decision Making - Lab Data Result diagrams: 09/05/17 21:49 09/05/17 20:11 Lab Results 09/05/17 09/05/17 09/05/17 Range/Units 20:11 20:11 20:20 Urine Color Yellow (Yellow) Urine Turbidity Clear (Clear) Urine pH 7.0 (5.0-7.0) Ur Specific [place] 1.011 (1.003-1.030) Urine Protein <15 mg/dl (Negative) mg/dL Urine Glucose (UA) Neg (Negative) mg/dL Urine Ketones Neg (Negative) mg/dL Urine Blood Neg (Negative) Urine Nitrite Neg (Negative) Urine Bilirubin Neg (Negative) Urine Urobilinogen < 2.0 (<2.0) mg/dL Ur Leukocyte Esterase Neg (Negative) Urine WBC (Auto) 1.0 (0.0-6.0) /HPF Urine RBC (Auto) 2.0 (0.0-6.0) /HPF Urine Sperm Few (GROUND [employer] CHIEF) /HPF Urine Opiates Screen Urine Methadone Screen Acetaminophen < 5.0 L (10.0-30.0) ug/mL Ur Barbiturates Screen Ur Phencyclidine Scrn Ur Amphetamines Screen U Benzodiazepines Scrn Urine Cocaine Screen Plasma/Serum Alcohol < 0.01 (0-0.07) % 09/05/17 Range/Units 20:20 Urine Color (Yellow) Urine Turbidity (Clear) Urine pH (5.0-7.0) Ur Specific [place] (1.003-1.030) Urine Protein (Negative) mg/dL Urine Glucose (UA) (Negative) mg/dL Urine Ketones (Negative) mg/dL Urine Blood (Negative) Urine Nitrite (Negative) Urine Bilirubin (Negative) Urine Urobilinogen (<2.0) mg/dL Ur Leukocyte Esterase (Negative) Urine WBC (Auto) (0.0-6.0) /HPF Urine RBC (Auto) (0.0-6.0) /HPF Urine Sperm (GROUND CREW CHIEF) /HPF Urine Opiates Screen Presumptive negative Urine Methadone Screen Presumptive negative Acetaminophen (10.0-30.0) ug/mL Ur Barbiturates Screen Presumptive negative Ur Phencyclidine Scrn Presumptive negative Ur Amphetamines Screen Presumptive negative U Benzodiazepines Scrn Presumptive negative Urine Cocaine Screen Presumptive negative Plasma/Serum Alcohol (0-0.07) % - EKG Data EKG shows normal: sinus rhythm, axis, intervals, ST-T waves Rate: normal - EKG Data When compared to previous EKG there are: previous EKG unavailable Interpretation: normal EKG - Radiology Data Radiology results: report reviewed, image reviewed Noncontrast CT scan of the brain is negative for acute disease Critical care attestation.: If time is entered above; I have spent that time in minutes in the direct care of this critically ill patient, excluding procedure time. ED Disposition Clinical Impression: History of seizure, Mood disorder Disposition: DC/TX-65 PSY HOSP/PSY UNIT Is pt being admited?: No Does the pt Need Aspirin: No Condition: Good Referrals: PRIMARY CARE, [Primary Care Provider] - 3-5 Days
[2017-09-05 20:41] LABS: Bilirubin,Urine NEG (Negative); Blood,Urine NEG (Negative); Color,Urine Yellow (Yellow); Protein,Urine <15 mg/dL mg/dL (Negative); Sperm,Urine FEW /HPF (NP); Urobilinogen,Urine < 2.0 mg/dL (<2.0)
[2017-09-05 20:48] LABS: Amphetamine Screen,Urine PRESUMPTIVE NEGATIVE; Benzodiazepines Screen,Urine PRESUMPTIVE NEGATIVE; Cocaine Screen,Urine PRESUMPTIVE NEGATIVE; Methadone Screen,Urine PRESUMPTIVE NEGATIVE; Opiate Screen,Urine PRESUMPTIVE NEGATIVE
--- NOTE | 2017-09-05 20:52 | Cat Scan Report ---
FINAL REPORT PROCEDURE: CT HEAD/BRAIN WO CON TECHNIQUE: Computerized tomography of the head was performed without contrast material. HISTORY: Seizure COMPARISON: No prior studies are available for comparison. FINDINGS: Brain: Brain density appears normal. No evidence of intracranial hemorrhage. No parenchymal hemorrhage, mass lesions or mass effect are seen. No abnormal extraxial fluid collects or masses are seen. Ventricles: Ventricles are normal size and are midline. Bone Windows: No evidence of skull fracture. Paranasal sinuses: There is minimal mucosal thickening scattered in the left maxillary sinus. Paranasal sinuses otherwise appear clear. Mastoid air cells: Clear IMPRESSION: Negative unenhanced CT scan of the brain. Minimal paranasal sinus disease as described. If clinically indicated MRI of the brain could be obtained to evaluate for possible seizure focus.
[2017-09-05] MEDS ORDERED: TORADOL IV ONE (20:55)
[2017-09-05] MEDS ORDERED: VITAMIN B-1 100 MG, FOLVITE 1 MG, INFUVITE 10 ML in NACL 0.9% 1000 ML 1,000 ML IV ONE (21:01)
[2017-09-05 21:02] LABS: Cannabinoid Screen,Urine PRESUMPTIVE POSITIVE
[2017-09-05 21:09] LABS: BUN/Creatinine Ratio 8; Blood Urea Nitrogen 6 mg/dL (9-20); Calcium 8.7 mg/dL (8.4-10.2); Hemolysis Index 88
[2017-09-05 21:20] LABS: Hemoglobin TNR gm/dl (11.8-15.2); Red Blood Count TNR M/mm3 (3.65-5.03)
[2017-09-05 21:21] LABS: Hematocrit TNR % (35.5-45.6); Mean Corpuscular Volume TNR fl (84-94)
[2017-09-05 21:22] LABS: Mean Corpuscular HGB Conc TNR % (32-34); Mean Corpuscular Hemoglobin TNR pg (28-32)
[2017-09-05 21:23] LABS: Mean Platelet Volume TNR fl (6-12); Platelet Count TNR K/mm3 (140-440); Red Cell Distribution Width TNR % (13.2-15.2)
[2017-09-05] MEDS: ATIVAN IV PRN (21:25)
[2017-09-05 21:57] LABS: Hematocrit 40.5 % (35.5-45.6); Hemoglobin 13.8 gm/dl (11.8-15.2); Mean Corpuscular HGB Conc 34 % (32-34); Mean Corpuscular Hemoglobin 32 pg (28-32); Mean Corpuscular Volume 95 fl (84-94); Platelet Count 201 K/mm3 (140-440); Red Blood Count 4.26 M/mm3 (3.65-5.03); Red Cell Distribution Width 13.8 % (13.2-15.2)
[2017-09-05] MEDS ORDERED: ZOFRAN ODT PO PRN (22:24)
[2017-09-05] MEDS ORDERED: TYLENOL PO PRN (22:24)
[2017-09-06] MEDS ORDERED: HALDOL IM PRN (01:17)
[2017-09-06] MEDS ORDERED: ATIVAN IM PRN (01:17)
[2017-09-06] MEDS: ATIVAN IV PRN (01:20)
[2017-09-06] MEDS ORDERED: HALDOL IM ONE (02:46)
[2017-09-06] MEDS: KEPPRA PO SCH ×2 (09:30→22:17)
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
[2017-09-07 08:50] LABS: Lipase 37 units/L (13-60)
[2017-09-07 08:53] LABS: Alanine Aminotransferase 12 units/L (7-56)
--- NOTE | 2017-09-07 10:13 | Progress Note ---
Subjective - Reason for Consult Consult date: 09/07/17 Reason for consult: Psychiatry follow-up - Chief Complaint Chief complaint: "I want help" 7 year old WM who presents to the emergency room with a seizure disorder. He reports a past medical history of seizure disorder, and reports taking Keppra, 500 mg twice daily. Today the patient is calm and cooperative during the assessment. He stated that his "biggest" issue is his alcohol (etoh) addiction. He stated that he want to stop drinking because he is aware of the damage alcohol (etoh) can cause to his body. He stated that he is willing to attend rehab services when discharged. He denies SI/HI's and AVH's. He denies any side effects of his medications. Mental Status Exam - Vital signs Last Vital Signs Temp 98.5 F 09/06/17 20:06 Pulse 84 09/06/17 20:06 Resp 18 09/06/17 20:24 BP 124/86 09/06/17 20:06 Pulse Ox 97 09/06/17 20:24 - Exam Narrative exam: MSE: Appearance: calm, cooperative Behavior: regular eye contact Speech: regular rate and tone Mood: "okay" Affect: congruent to mood Thought Process: linear Thought Content: denies SI/HI's and AVH's Motor Activity: sitting up in bed Cognition: A/O x 3 Insight: appropriate Judgment: appropriate Assessment and Plan Impression: Hx of Scizoaffective DO per the record. Hx of Alcohol Use DO. Today the patient is calm and cooperative during the assessment. Observed mild tremors on assessment. Recommendation/Plan: Rescind 1013. Continue to assess the need for CIWA daily. Recommend Ativan PO for CIWA only at this time to prevent over sedation. Continue home medication Depakote 500 mg PO BID for mood and Seroquel 100 mg PO HS for mood. Discussed possible metabolic side effects of Seroquel with patient. He understand when to get labs drawn reference Depakote. The patient can follow up with [facility] for outpatient rehab/psy services. Also, the patient was referred to [facility] for rehab services that's located in [facility].
[2017-09-07] MEDS: KEPPRA PO SCH (10:37)
--- NOTE | 2017-09-07 13:52 | Emergency Department Report ---
HPI - General Chief Complaint: Seizure Time Seen by Provider: 09/05/17 19:51 ED Past Medical Hx - Past Medical History Previous Medical History?: Yes Additional medical history: Pt unable to communicate to answer questions during triage - Social History Smoking Status: Current Every Day Smoker Substance Use Type: Alcohol - Medications Home Medications: Home Medications Medication Instructions Recorded Confirmed Last Taken Type clonazePAM [Klonopin] 0.5 mg PO QID 09/05/17 09/05/17 Unknown History levETIRAcetam [Keppra] 500 mg PO BID 09/05/17 09/05/17 Unknown History ED Review of Systems ROS: Stated complaint: SEIZURE Other details as noted in HPI Constitutional: malaise Eyes: denies: eye discharge ENT: denies: epistaxis Respiratory: denies: cough Cardiovascular: denies: chest pain, syncope Gastrointestinal: denies: vomiting Genitourinary: denies: dysuria Musculoskeletal: back pain, arthralgia Skin: denies: lesions Neurological: weakness Psychiatric: anxiety Physical Exam - Physical Exam Vital Signs: Vital Signs 09/05/17 09/05/17 09/05/17 19:57 20:00 20:15 Temperature Pulse Rate 89 90 83 Respiratory 15 12 10 L Rate Blood Pressure 113/80 97/70 Blood Pressure [Left] O2 Sat by Pulse 87 97 Oximetry 09/05/17 09/05/17 09/05/17 20:32 20:45 21:00 Temperature Pulse Rate 73 Respiratory 17 Rate Blood Pressure 113/80 113/80 113/80 Blood Pressure [Left] O2 Sat by Pulse 97 84 Oximetry 09/05/17 09/05/17 09/06/17 21:09 21:24 00:06 Temperature 98.7 F Pulse Rate 91 H 65 Respiratory 20 20 11 L Rate Blood Pressure 113/80 Blood Pressure 118/77 [Left] O2 Sat by Pulse 98 Oximetry 09/06/17 09/06/17 09/06/17 01:00 02:37 08:14 Temperature Pulse Rate 57 L Respiratory 10 L 20 20 Rate Blood Pressure 116/77 Blood Pressure [Left] O2 Sat by Pulse 98 100 100 Oximetry 09/06/17 09/06/17 09/06/17 09:26 20:06 20:24 Temperature 97.9 F 98.5 F Pulse Rate 80 84 Respiratory 18 18 18 Rate Blood Pressure 124/86 Blood Pressure 114/90 [Left] O2 Sat by Pulse 97 97 97 Oximetry ED Course Vital Signs 09/05/17 09/05/17 09/05/17 19:57 20:00 20:15 Temperature Pulse Rate 89 90 83 Respiratory 15 12 10 L Rate Blood Pressure 113/80 97/70 Blood Pressure [Left] O2 Sat by Pulse 87 97 Oximetry 09/05/17 09/05/17 09/05/17 20:32 20:45 21:00 Temperature Pulse Rate 73 Respiratory 17 Rate Blood Pressure 113/80 113/80 113/80 Blood Pressure [Left] O2 Sat by Pulse 97 84 Oximetry 09/05/17 09/05/17 09/06/17 21:09 21:24 00:06 Temperature 98.7 F Pulse Rate 91 H 65 Respiratory 20 20 11 L Rate Blood Pressure 113/80 Blood Pressure 118/77 [Left] O2 Sat by Pulse 98 Oximetry 09/06/17 09/06/17 09/06/17 01:00 02:37 08:14 Temperature Pulse Rate 57 L Respiratory 10 L 20 20 Rate Blood Pressure 116/77 Blood Pressure [Left] O2 Sat by Pulse 98 100 100 Oximetry 09/06/17 09/06/17 09/06/17 09:26 20:06 20:24 Temperature 97.9 F 98.5 F Pulse Rate 80 84 Respiratory 18 18 18 Rate Blood Pressure 124/86 Blood Pressure 114/90 [Left] O2 Sat by Pulse 97 97 97 Oximetry - Reevaluation(s) Reevaluation #1: 09/07/17 13:46 Patient was evaluated by psychiatry this morning. Psychiatry recommended discharging patient home to follow-up with his primary doctor. I reevaluated patient prior to discharge, patient denies suicidal or homicidal ideation. He said he had a seizure and was brought to the hospital and he never said he was suicidal. The 1013 form has been rescinded by the psychiatric mid level provider this morning. Patient is appropriate and oriented. He was able to answer all my questions correctly. I will go ahead and discharge him as recommended by the psychiatric team. Patient does not look to be a danger to himself or to others based on my recent assessment. ED Medical Decision Making - Lab Data Result diagrams: 09/05/17 21:49 09/05/17 20:11 Critical care attestation.: If time is entered above; I have spent that time in minutes in the direct care of this critically ill patient, excluding procedure time. ED Disposition Clinical Impression: Seizure disorder, Marijuana abuse Disposition: DC-01 TO HOME OR SELFCARE Is pt being admited?: No Does the pt Need Aspirin: No Condition: Good Instructions: Recurrent Seizures Adult (ED) Additional Instructions: Follow up with your regular doctor tomorrow morning. Return to the ED if your condition worsens. Referrals: PRIMARY CARE, [Primary Care Provider] - 3-5 Days Time of Disposition: 13:45
[2017-09-07 14:03] VITALS: BP 112/82
== END 2017-09-07 14:19 | disposition home or self-care (01) ==
LOC: MERGE 19:21 → EEVIPCON 19:21 → ED 19:21
DX: G40.909 Epilepsy, unspecified, not intractable, without status epilepticus (principal); F39 Unspecified mood [affective] disorder; F17.200 Nicotine dependence, unspecified, uncomplicated
CPT/HCPCS: 36415; 70450; 80048; 80307; 81001; 82150; 82550; 82962; 83690; 83735; 84075; 84450; 84460; 85027; 93005; 93010; 96365; 96368; 96372; 96375; 96376; 99285; G0480; J1630; J1885; J1953; J2060; J3411; J7030; 80320; 96367; Q0162

== ENCOUNTER 2017-09-16 20:02 | Emergency (ER) | payer MEDICAID ==
[2017-09-16 20:51] LABS: BUN/Creatinine Ratio 13; Blood Urea Nitrogen 12 mg/dL (9-20); Calcium 9.5 mg/dL (8.4-10.2); Hemolysis Index 38
[2017-09-16 20:54] LABS: Basophils # (Auto) 0.1 K/mm3 (0.0-0.1); Basophils % (Auto) 0.7 % (0.0-1.8); Bilirubin,Urine NEG (Negative); Blood,Urine NEG (Negative); Color,Urine Yellow (Yellow); Eosinophils # (Auto) 0.6 K/mm3 (0.0-0.4); Eosinophils % (Auto) 6.9 % (0.0-4.3); Hematocrit 44.8 % (35.5-45.6); Hemoglobin 15.3 gm/dl (11.8-15.2); Lymphocytes # (Auto) 2.7 K/mm3 (1.2-5.4); Lymphocytes % (Auto) 32.8 % (13.4-35.0); Mean Corpuscular HGB Conc 34 % (32-34); Mean Corpuscular Hemoglobin 32 pg (28-32); Mean Corpuscular Volume 95 fl (84-94); Monocytes # (Auto) 0.6 K/mm3 (0.0-0.8); Monocytes % (Auto) 6.8 % (0.0-7.3); Mucus,Urine FEW /HPF; Platelet Count 203 K/mm3 (140-440); Protein,Urine <15 mg/dL mg/dL (Negative); Red Blood Count 4.73 M/mm3 (3.65-5.03); Red Cell Distribution Width 13.7 % (13.2-15.2); Urobilinogen,Urine < 2.0 mg/dL (<2.0)
[2017-09-16 21:03] LABS: Amphetamine Screen,Urine PRESUMPTIVE NEGATIVE; Benzodiazepines Screen,Urine PRESUMPTIVE NEGATIVE; Cocaine Screen,Urine PRESUMPTIVE NEGATIVE; Methadone Screen,Urine PRESUMPTIVE NEGATIVE; Opiate Screen,Urine PRESUMPTIVE NEGATIVE
[2017-09-16 21:18] LABS: Cannabinoid Screen,Urine PRESUMPTIVE POSITIVE
--- NOTE | 2017-09-16 21:33 | Emergency Department Report ---
ED Psych HPI - General Chief Complaint: Psych Stated Complaint: SUICIDAL THOUGHTS Time Seen by Provider: 09/16/17 20:15 Source: patient Mode of arrival: Ambulatory - History of Present Illness Initial Comments: Patient is a 47-year-old male that presents to emergency room with complaints of suicidal ideations 2 days. Patient states he has a plan to help her himself by cutting his throat or his wrist. Patient states he has done this in the past and feels like doing it again. Patient also complains of audio and visual hallucinations. Patient denies homicidal ideations. Patient denies chest pain shortness of breath. Patient denies all physical complaints. MD Complaint: suicidal ideation, feels depressed -: Sudden Associated Psychiatric Symptoms: depression, suicidal ideation, auditory hallucinations, visual hallucinations History of same: Yes Quality: constant Improves With: none Worsens With: none Associated Symptoms: denies other symptoms. denies: confusion, headache, shortness of breath, nausea, vomiting, syncope, insomnia Treatments Prior to Arrival: placed on mental he If Self Harm: admits thoughts of, has plan - Related Data Home Medications Medication Instructions Recorded Confirmed Last Taken clonazePAM [Klonopin] 0.5 mg PO QID 09/05/17 09/16/17 Unknown levETIRAcetam [Keppra] 500 mg PO BID 09/05/17 09/16/17 Unknown Trazodone HCl 150 mg PO DAILY 09/16/17 09/16/17 Unknown Previous Rx's Medication Instructions Recorded Last Taken Type Quetiapine Fumarate [Seroquel] 300 mg PO BID #30 tablet 03/29/17 Unknown Rx Allergies Allergy/AdvReac Type Severity Reaction Status Date / Time risperidone [From Risperdal] Allergy Angioedema Verified 05/14/17 08:42 haloperidol AdvReac Angioedema Verified 05/14/17 08:42 ED Review of Systems ROS: Stated complaint: SUICIDAL THOUGHTS Other details as noted in HPI Constitutional: denies: chills, fever Eyes: denies: eye pain, eye discharge, vision change ENT: denies: ear pain, throat pain Respiratory: denies: cough, shortness of breath, wheezing Cardiovascular: denies: chest pain, palpitations Endocrine: no symptoms reported Gastrointestinal: denies: abdominal pain, nausea, diarrhea Genitourinary: denies: urgency, dysuria Musculoskeletal: denies: back pain, joint swelling, arthralgia Skin: denies: rash, lesions Neurological: denies: headache, weakness, paresthesias Psychiatric: depression, auditory hallucinations, visual hallucinations, suicidal thoughts. denies: anxiety Hematological/Lymphatic: denies: easy bleeding, easy bruising ED Past Medical Hx - Past Medical History Previous Medical History?: Yes Hx Seizures: Yes Hx Psychiatric Treatment: Yes (Bipolar, Schizophrenia, Depression) Additional medical history: Pt unable to communicate to answer questions during triage - Surgical History Past Surgical History?: Yes Hx Appendectomy: Yes - Family History Family history: no significant - Social History Smoking Status: Current Every Day Smoker Substance Use Type: None - Medications Home Medications: Home Medications Medication Instructions Recorded Confirmed Last Taken Type Quetiapine Fumarate [Seroquel] 300 mg PO BID #30 tablet 03/29/17 09/16/17 Unknown Rx clonazePAM [Klonopin] 0.5 mg PO QID 09/05/17 09/16/17 Unknown History levETIRAcetam [Keppra] 500 mg PO BID 09/05/17 09/16/17 Unknown History Trazodone HCl 150 mg PO DAILY 09/16/17 09/16/17 Unknown History ED Physical Exam - General Limitations: No Limitations General appearance: alert, in no apparent distress - Head Head exam: Present: atraumatic, normocephalic - Eye Eye exam: Present: normal appearance - ENT ENT exam: Present: mucous membranes moist - Neck Neck exam: Present: normal inspection - Respiratory Respiratory exam: Present: normal lung sounds bilaterally. Absent: respiratory distress - Cardiovascular Cardiovascular Exam: Present: regular rate, normal rhythm. Absent: systolic murmur, diastolic murmur, rubs, gallop - GI/Abdominal GI/Abdominal exam: Present: soft, normal bowel sounds - Rectal Rectal exam: Present: deferred - Extremities Exam Extremities exam: Present: normal inspection - Back Exam Back exam: Present: normal inspection - Neurological Exam Neurological exam: Present: alert, oriented X3 - Psychiatric Psychiatric exam: Present: depressed, flat affect, suicidal ideation - Skin Skin exam: Present: warm, dry, intact, normal color. Absent: rash ED Course Vital Signs 09/16/17 09/16/17 09/17/17 20:11 20:46 03:55 Temperature 99.5 F 98.7 F Pulse Rate 97 H 87 Respiratory 18 16 16 Rate Blood Pressure 118/91 Blood Pressure 106/75 [Left] O2 Sat by Pulse 100 98 98 Oximetry - Reevaluation(s) Reevaluation #1: 1013 signed for suicidal ideations with a plan. Patient states he would cut his throat or his wrist. Patient states she has done this in the past. Patient is also having audio and visual hallucinations. We'll place mental health eval order 09/16/17 20:15 Reevaluation #2: Mental health evaluated patient and recommends transfer to an appropriate psychiatric facility. Patient will remain on a 1013. Patient is medically cleared at this time and is awaiting transfer to facility. 09/17/17 03:06 ED Medical Decision Making - Lab Data Result diagrams: 09/16/17 20:20 09/16/17 20:20 - Medical Decision Making Immunization is a 47-year-old male that presents emergency room with complaints of suicidal ideations and auditory hallucinations and visual hallucinations. Patient was placed on a 1013 and evaluated by mental health. Patient was medically cleared all labs were reviewed. Patient is awaiting transfer to a psychiatric facility. Patient will remain on a 1013 until acceptance to a psychiatric facility. We'll adjust treatment when necessary - Differential Diagnosis si. ah. vh. depression. schizo. med reaction Critical care attestation.: If time is entered above; I have spent that time in minutes in the direct care of this critically ill patient, excluding procedure time. ED Disposition Clinical Impression: Suicidal ideations, Auditory hallucinations, Visual hallucinations Disposition: DC/TX-65 PSY HOSP/PSY UNIT Is pt being admited?: No Does the pt Need Aspirin: No Condition: Serious Referrals: PRIMARY CARE, [Primary Care Provider] - 3-5 Days Time of Disposition: 03:08
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
[2017-09-17 19:26] VITALS: BP 128/72
== END 2017-09-17 19:00 ==
LOC: ED 20:02 → EEVIPCON 20:02 → ED 09-17 19:00
DX: F31.9 Bipolar disorder, unspecified (principal); F20.9 Schizophrenia, unspecified; F17.200 Nicotine dependence, unspecified, uncomplicated; Z88.8 Allergy status to other drugs, medicaments and biological substances
CPT/HCPCS: 36415; 80048; 80164; 80307; 81001; 85025; 99285; G0480; 80320

== ENCOUNTER 2017-10-03 13:38 | Emergency (ER) | payer MEDICAID ==
[2017-10-03] MEDS ORDERED: NACL 0.9% 500 ML 500 ML IV ONE (14:01)
[2017-10-03] MEDS ORDERED: TYLENOL PO ONE (14:07)
[2017-10-03] MEDS ORDERED: TYLENOL ONE (14:09)
[2017-10-03] MEDS ORDERED: NACL 0.9% 1000 ML IV ONE (14:24)
[2017-10-03] MEDS ORDERED: ZOSYN/NS 4.5GM/100ML 4.5 GM/100 ML VIAL IV ONE ×2 (14:25→17:21)
[2017-10-03] MEDS ORDERED: ZOFRAN IV ONE (15:02)
[2017-10-03] MEDS ORDERED: SUBLIMAZE IV ONE (15:02)
[2017-10-03] MEDS ORDERED: TESSALON PERLES PO ONE (15:04)
[2017-10-03 15:07] LABS: Basophils % (Auto) 0.4 % (0.0-1.8); Eosinophils # (Auto) 0.2 K/mm3 (0.0-0.4); Eosinophils % (Auto) 2.8 % (0.0-4.3); Hematocrit 44.3 % (35.5-45.6); Lymphocytes # (Auto) 1.4 K/mm3 (1.2-5.4); Mean Corpuscular HGB Conc 34 % (32-34); Mean Corpuscular Hemoglobin 32 pg (28-32); Mean Corpuscular Volume 95 fl (84-94); Monocytes # (Auto) 0.7 K/mm3 (0.0-0.8); Monocytes % (Auto) 8.2 % (0.0-7.3); Platelet Count 201 K/mm3 (140-440); Red Blood Count 4.68 M/mm3 (3.65-5.03); Red Cell Distribution Width 13.3 % (13.2-15.2)
[2017-10-03] MEDS ORDERED: BABY ASPIRIN PO ONE (15:07)
--- NOTE | 2017-10-03 15:07 | Emergency Department Report ---
HPI - General Chief Complaint: Fever Time Seen by Provider: 10/03/17 14:23 - HPI HPI: The patient is a 47 yo male who presents for evaluation of cough and generalized myalgias. The patient reports 1-2 days of a cough productive of yellow and green sputum, associated with generalized achiness of the upper back and chest wall, moderate severity, worse with coughing, relieved at rest. He also admits to dysuria and testicular pain for the past couple of days. The patient denies fever, headache, neck stiffness or neck pain, sore throat, ear pain, parasthesias, dyspnea, hemoptysis, syncope, unilateral leg swelling, calf muscle pain, chest pain, nausea, vomiting, diarrhea, joint pain or redness, rectal pain. ED Past Medical Hx - Past Medical History Previous Medical History?: Yes Hx Seizures: Yes Hx Psychiatric Treatment: Yes (Bipolar, Schizophrenia, Depression) Additional medical history: Pt unable to communicate to answer questions during triage - Surgical History Past Surgical History?: Yes Hx Appendectomy: Yes - Social History Smoking Status: Current Every Day Smoker Substance Use Type: Marijuana - Medications Home Medications: Home Medications Medication Instructions Recorded Confirmed Last Taken Type levETIRAcetam [Keppra] 500 mg PO QDAY 09/05/17 10/03/17 Unknown History Azithromycin [Zithromax Z-JOYCE] 250 mg PO QDAY #6 tablet 10/03/17 Unknown Rx FLUoxetine HCL [PROzac] 40 mg PO QDAY 10/03/17 10/03/17 Unknown History Gabapentin [Neurontin] 300 mg PO BID 10/03/17 10/03/17 Unknown History QUEtiapine [SEROquel] 500 mg PO HS 10/03/17 10/03/17 Unknown History Quetiapine Fumarate [Seroquel] 300 mg PO QAM 10/03/17 10/03/17 Unknown History cephALEXin [Keflex] 500 mg PO Q6HR #30 capsule 10/03/17 Unknown Rx hydrOXYzine PAMOATE [Vistaril] 25 mg PO Q4HR PRN 10/03/17 10/03/17 Unknown History traZODone [Desyrel] 100 mg PO QHS 10/03/17 10/03/17 Unknown History ED Review of Systems ROS: Stated complaint: ILLNESS Other details as noted in HPI Constitutional: denies: fever ENT: denies: throat or neck pain Respiratory: reports cough,denies: shortness of breath Cardiovascular: denies: chest pain Endocrine: denies unexplained weight loss or gain Gastrointestinal: reports abdominal pain denies nausea Genitourinary: reports dysuria Musculoskeletal: reports myalgias denies: leg swelling Skin: denies: rash Neurological: denies: headache Hematological/Lymphatic: denies: easy bleeding or easy bruising Psych: denies sadness or hopelessness Physical Exam - Physical Exam Vital Signs: Vital Signs 10/03/17 13:58 Temperature 100.5 F H Pulse Rate 113 H Respiratory 18 Rate Blood Pressure 117/88 O2 Sat by Pulse 96 Oximetry Physical Exam: General: well-nourished, well-developed, no acute distress Head: Normocephalic, atraumatic Eyes: normal sclera ENT: Mucous membranes are pale and dry Neck: No neck stiffness, no cervical adenopathy Respiratory: Breath sounds equal bilaterally, no wheezing, rales, or rhonchi Cardio: S1 and S2 present, no murmurs, rubs, gallops, capillary refill is delayed Abdomen: Normoactive bowel sounds, soft abdomen, suprapubic tenderness to palpation present, no rigidity, no guarding or rebound tenderness Chest WALL/Back: No tenderness to palpation of the chest wall, no CVA tenderness with percussion : Left testicular tenderness to palpation present, no swelling, redness, or fluctuance, no perineal redness, swelling or fluctuance, no crepitus Musc: No pitting edema Skin: No rash Neuro: no facial drooping, normal speech Psych: Normal affect ED Course Vital Signs 10/03/17 13:58 Temperature 100.5 F H Pulse Rate 113 H Respiratory 18 Rate Blood Pressure 117/88 O2 Sat by Pulse 96 Oximetry ED Medical Decision Making - Lab Data Result diagrams: 10/03/17 14:25 10/03/17 14:25 - Medical Decision Making The patient was seen and examined by myself. The patient is placed on a sensitized paper tester and continuous pulse ox. On initial evaluation, the patient was found to be in no distress. Evaluation orders are placed. IV access is established and the patient is given 1 L normal saline fluid bolus and Zofran for nausea, and IV analgesic for pain. The patient was given Tylenol for fever. The patient is given IV Zosyn of concern for potential sepsis. Lab results were non-concerning including WBC, hemoglobin, hematocrit, electrolytes , renal function, LFTs, lipase, and urinalysis. A urinalysis was negative for evidence of urinary tract infection, urinalysis is not sensitive for ruling out urinary tract infection, and the patient will be continued on home Keflex regimen for treatment of suspected urinary tract infection. Urine culture was sent. X-ray of the chest is negative for acute cardiopulmonary disease process. As patient has experienced a productive cough and fever, without infilatrate on chest imaging, acute bronchitis is suspected. The patient is given azithromycin for treatment of bronchitis. The patient is reevaluated and reports that his symptoms are markedly improved. However examination of patient 's found to have defervesced is a fever, temperature now 98F, and all other vitals are within normal limits as well, including normal heart rate of 83, nml RR, and normal oxygen saturation on pulse ox. The patient is stable for discharge with outpatient follow-up. The patient is given follow-up and return instructions. The patient expressed understanding and agreed with the plan. The patient is discharged in stable condition. Critical care attestation.: If time is entered above; I have spent that time in minutes in the direct care of this critically ill patient, excluding procedure time. ED Disposition Clinical Impression: Upper respiratory infection, acute, Acute UTI (urinary tract infection) Disposition: DC- TO HOME OR SELFCARE Is pt being admited?: No Does the pt Need Aspirin: No Condition: Stable Instructions: Urinary Tract Infection in Men (ED), Upper Respiratory Infection (ED) Prescriptions: Azithromycin [Zithromax Z-JOYCE] 250 mg PO QDAY #6 tablet cephALEXin [Keflex] 500 mg PO Q6HR #30 capsule Referrals: PRIMARY CARE, [Primary Care Provider] - 3-5 Days [facility] [Provider Group] - 3-5 Days Time of Disposition: 15:06
[2017-10-03 15:15] LABS: INR 0.89 (0.87-1.13)
[2017-10-03 15:20] LABS: Alanine Aminotransferase 9 units/L (7-56); Albumin 4.1 g/dL (3.9-5); BUN/Creatinine Ratio 9; Blood Urea Nitrogen 7 mg/dL (9-20); Hemolysis Index 3
[2017-10-03 15:41] LABS: Alanine Aminotransferase 9 units/L (7-56); Albumin 4.2 g/dL (3.9-5); Lipase 22 units/L (13-60)
[2017-10-03 15:44] LABS: Bilirubin,Direct < 0.2 mg/dL (0-0.2)
--- NOTE | 2017-10-03 15:56 | Ultrasound Report ---
FINAL REPORT EXAM: US EXAM SCROTUM HISTORY: LEFT TESTICULAR PAIN AND FEVER TECHNIQUE: Directed sonography of the scrotum. PRIORS: None. FINDINGS: Right testicle measures 4.7 x 1.7 x 2.9 cm. Left testicle measures 4.4 x 2 x 2 cm. Mildly heterogeneous echogenicity bilaterally, nonspecific. No intratesticular masses. Blood flow present bilaterally. Small, ovoid cyst in left epididymal head measuring approximately 9 mm. Remainder of epididymes unremarkable bilaterally. Minimal fluid in bilateral hemiscrotum, left a bit greater than right. No other abnormal fluid collections. IMPRESSION: 1. No intratesticular masses or evidence of torsion. 2. Small left spermatocele, and minimal fluid in bilateral hemiscrotum.
--- NOTE | 2017-10-03 16:04 | XRay Report ---
FINAL REPORT EXAM: XR CHEST 1V AP HISTORY: cough, fever TECHNIQUE: Single, portable chest x-ray. PRIORS: None. FINDINGS: Cardiac and mediastinal silhouette within normal limits. Lungs are normally expanded, without significant vascular congestion. No focal consolidation or apparent pneumothorax. Bony thorax grossly unremarkable. IMPRESSION: 1. No acute consolidation.
[2017-10-03 17:22] LABS: Bilirubin,Urine NEG (Negative); Blood,Urine NEG (Negative); Color,Urine Straw (Yellow); Protein,Urine <15 mg/dL mg/dL (Negative); Urobilinogen,Urine < 2.0 mg/dL (<2.0); WBC,Urine < 1.0 /HPF (0.0-6.0)
[2017-10-03] MEDS ORDERED: NACL 0.9% 1000 ML 2,000 ML ONE (17:33)
--- NOTE | 2017-10-03 17:50 | Cat Scan Report ---
FINAL REPORT EXAM: CT CHEST W CON HISTORY: fever, cough TECHNIQUE: Spiral CT scanning of the chest after the uneventful administration of IV contrast. Multiplanar reformations. PRIORS: None. FINDINGS: Chest: The lungs show probable bibasilar atelectasis versus scarring. No discrete parenchymal mass, focal consolidation or pleural effusions. No apparent pneumothorax. Mediastinal structures are without significant abnormality. No apparent aneurysm, pseudoaneurysm or aortic dissection. No significant lymph node enlargement or axillary adenopathy. Visualized upper abdomen grossly unremarkable. IMPRESSION: 1. No acute findings.
--- NOTE | 2017-10-03 17:57 | Cat Scan Report ---
FINAL REPORT EXAM: CT ABDOMEN PELVIS W CON HISTORY: fever, lower abdominal pain, flank pain TECHNIQUE: Spiral CT scanning of the abdomen and pelvis after the uneventful administration of IV contrast. Multiplanar reformations. PRIORS: 14 May 2017. FINDINGS: Abdomen: Visualized lung bases show mild atelectatic change or scarring bilaterally. No radiopaque gallstones. Liver without significant abnormality. Spleen without significant abnormality. Pancreas without significant abnormality. Kidneys without significant abnormality. Right renal cyst again noted measuring approximately 1 cm. Adrenal glands without significant abnormality. Pelvis: Bowel grossly unremarkable. Appendix not confidently identified and probably surgically absent. No significant free peritoneal fluid, discrete abscess or apparent adenopathy. Abdominal aorta non-aneurysmal. Axial skeleton grossly unremarkable. IMPRESSION: 1. No acute findings.
[2017-10-03] MEDS ORDERED: ZITHROMAX PO ONE (19:18)
[2017-10-03 19:37] VITALS: BP 126/87
== END 2017-10-03 20:32 | disposition home or self-care (01) ==
LOC: ED 13:38
DX: N39.0 Urinary tract infection, site not specified (principal); J06.9 Acute upper respiratory infection, unspecified; R10.30 Lower abdominal pain, unspecified; F31.9 Bipolar disorder, unspecified; F20.9 Schizophrenia, unspecified; F17.200 Nicotine dependence, unspecified, uncomplicated; F12.90 Cannabis use, unspecified, uncomplicated; Z90.49 Acquired absence of other specified parts of digestive tract; Z79.899 Other long term (current) drug therapy
CPT/HCPCS: 36415; 51701; 71045; 71260; 74177; 80053; 80074; 81001; 82140; 82805; 83690; 83880; 85025; 85610; 87040; 87086; 93005; 93010; 93975; 96361; 96365; 96375; 99285; J2405; J2543; J3010; J7030; J7040; Q9967

== ENCOUNTER 2017-10-04 07:55 | Emergency (ER) | payer MEDICAID ==
[2017-10-04 09:40] LABS: Basophils % (Auto) 0.6 % (0.0-1.8); Eosinophils # (Auto) 0.1 K/mm3 (0.0-0.4); Eosinophils % (Auto) 1.9 % (0.0-4.3); Hematocrit 42.3 % (35.5-45.6); Hemoglobin 14.7 gm/dl (11.8-15.2); Lymphocytes # (Auto) 1.1 K/mm3 (1.2-5.4); Lymphocytes % (Auto) 15.4 % (13.4-35.0); Mean Corpuscular HGB Conc 35 % (32-34); Mean Corpuscular Hemoglobin 32 pg (28-32); Mean Corpuscular Volume 93 fl (84-94); Monocytes # (Auto) 0.6 K/mm3 (0.0-0.8); Monocytes % (Auto) 9.3 % (0.0-7.3); Platelet Count 195 K/mm3 (140-440); Red Blood Count 4.54 M/mm3 (3.65-5.03); Red Cell Distribution Width 13.4 % (13.2-15.2)
[2017-10-04 09:57] LABS: Alanine Aminotransferase 8 units/L (7-56); Albumin 3.6 g/dL (3.9-5); BUN/Creatinine Ratio 10; Blood Urea Nitrogen 7 mg/dL (9-20); Calcium 8.4 mg/dL (8.4-10.2); Hemolysis Index 21
[2017-10-04 10:08] LABS: Bilirubin,Urine NEG (Negative); Blood,Urine NEG (Negative); Color,Urine Yellow (Yellow); Protein,Urine <15 mg/dL mg/dL (Negative); Urobilinogen,Urine < 2.0 mg/dL (<2.0); WBC,Urine < 1.0 /HPF (0.0-6.0)
[2017-10-04] MEDS ORDERED: KEPPRA 1,000 MG in NACL 0.9% 100 ML IV STA (10:45)
[2017-10-04] MEDS ORDERED: PROVENTIL IH ONE ×2 (10:45→13:21)
[2017-10-04] MEDS ORDERED: NACL 0.9% 1000 ML 1,000 ML IV ONE (10:47)
--- NOTE | 2017-10-04 10:52 | Emergency Department Report ---
ED General Adult HPI - General Chief complaint: Overdose Stated complaint: OVERDOSE Time Seen by Provider: 10/04/17 10:34 Source: patient, EMS (ems notes not available at time of chart dictation), RN notes reviewed, old records reviewed Mode of arrival: Stretcher Limitations: No Limitations - History of Present Illness Initial comments: Alternative medical record number; murray [id number] Past medical history includes schizophrenia, PTSD, essential seizures, seizure disorder, taking Keppra, 500 mg twice daily. The patient was seen in this ER yesterday for cough, testicular pain, had extensive ER workup, which included multiple imaging, including CT scan of the chest, abdomen, pelvis, and testicular ultrasound. Please review the detailed medical record from yesterday. As per triage documentation, patient was found unresponsive at a senior living, Narcan was given, and the patient became more responsive. Apparently the patient stated that he had overdosed on meth to EMS, but he does not endorses in the emergency room. He reports that he feels like he had a seizure. He reports that he last took his Keppra medication yesterday morning, missed it last night and this morning. He denies DVT, pulmonary embolus risk factors. He complains of generalized weakness and generalized dizziness. He still coughing, still endorses testicular pain. His symptoms of cough and discomfort have been constant since yesterday, did not radiate anywhere, and he endorses no relieving factors. -: Sudden Radiation: other Severity scale (0 -10): 0 Quality: other Consistency: other Improves with: other Worsens with: other Associated Symptoms: cough, loss of appetite, malaise, seizure, syncope, weakness, other (patient thinks that he had a seizure. He does not think that he passed out.). denies: confusion, chest pain, diaphoresis, fever/chills, nausea/vomiting, rash - Related Data Home Medications Medication Instructions Recorded Confirmed Last Taken FLUoxetine HCL [PROzac] 40 mg PO QDAY 10/03/17 10/03/17 Unknown Gabapentin [Neurontin] 300 mg PO BID 10/03/17 10/03/17 Unknown QUEtiapine [SEROquel] 500 mg PO HS 10/03/17 10/03/17 Unknown Quetiapine Fumarate [Seroquel] 300 mg PO QAM 10/03/17 10/03/17 Unknown hydrOXYzine PAMOATE [Vistaril] 25 mg PO Q4HR PRN 10/03/17 10/03/17 Unknown traZODone [Desyrel] 100 mg PO QHS 10/03/17 10/03/17 Unknown Previous Rx's Medication Instructions Recorded Last Taken Type Acetaminophen/Codeine [Tylenol #3] 1 tab PO Q6H PRN #14 tab 10/03/17 Unknown Rx Azithromycin [Zithromax Z-JOYCE] 250 mg PO QDAY #6 tablet 10/03/17 Unknown Rx Ibuprofen [Motrin] 600 mg PO Q8H PRN #30 tablet 10/03/17 Unknown Rx cephALEXin [Keflex] 500 mg PO Q6HR #30 capsule 10/03/17 Unknown Rx Valproic Acid [Depakene] 500 mg PO BID #120 capsule 10/04/17 Unknown Rx levETIRAcetam [Keppra] 500 mg PO BID #60 tablet 10/04/17 Unknown Rx Allergies Allergy/AdvReac Type Severity Reaction Status Date / Time risperidone [From Risperdal] Allergy Angioedema Verified 05/14/17 08:42 haloperidol AdvReac Angioedema Verified 05/14/17 08:42 ED Review of Systems ROS: Stated complaint: OVERDOSE Other details as noted in HPI Constitutional: malaise Eyes: denies: eye discharge Respiratory: cough, shortness of breath, wheezing Cardiovascular: syncope (syncope versus seizure) Gastrointestinal: denies: vomiting Genitourinary: testicular pain Musculoskeletal: arthralgia Neurological: weakness Psychiatric: anxiety. denies: homicidal thoughts, suicidal thoughts ED Past Medical Hx - Past Medical History Previous Medical History?: Yes Hx Seizures: Yes Hx Psychiatric Treatment: Yes (Bipolar, Schizophrenia, Depression) Additional medical history: Pt unable to communicate to answer questions during triage - Surgical History Hx Appendectomy: Yes - Social History Smoking Status: Current Every Day Smoker Substance Use Type: Methamphetamines - Medications Home Medications: Home Medications Medication Instructions Recorded Confirmed Last Taken Type Acetaminophen/Codeine [Tylenol #3] 1 tab PO Q6H PRN #14 tab 10/03/17 Unknown Rx Azithromycin [Zithromax Z-JOYCE] 250 mg PO QDAY #6 tablet 10/03/17 Unknown Rx FLUoxetine HCL [PROzac] 40 mg PO QDAY 10/03/17 10/03/17 Unknown History Gabapentin [Neurontin] 300 mg PO BID 10/03/17 10/03/17 Unknown History Ibuprofen [Motrin] 600 mg PO Q8H PRN #30 tablet 10/03/17 Unknown Rx QUEtiapine [SEROquel] 500 mg PO HS 10/03/17 10/03/17 Unknown History Quetiapine Fumarate [Seroquel] 300 mg PO QAM 10/03/17 10/03/17 Unknown History cephALEXin [Keflex] 500 mg PO Q6HR #30 capsule 10/03/17 Unknown Rx hydrOXYzine PAMOATE [Vistaril] 25 mg PO Q4HR PRN 10/03/17 10/03/17 Unknown History traZODone [Desyrel] 100 mg PO QHS 10/03/17 10/03/17 Unknown History Valproic Acid [Depakene] 500 mg PO BID #120 capsule 10/04/17 Unknown Rx levETIRAcetam [Keppra] 500 mg PO BID #60 tablet 10/04/17 Unknown Rx ED Physical Exam - General Limitations: Other (patient has generalized sense of tremor) General appearance: alert, in no apparent distress - Head Head exam: Present: atraumatic, normocephalic - Eye Eye exam: Present: normal appearance, EOMI. Absent: nystagmus - ENT ENT exam: Present: normal exam, normal orophraynx, mucous membranes moist, normal external ear exam - Neck Neck exam: Present: normal inspection, full ROM. Absent: tenderness, meningismus - Respiratory Respiratory exam: Present: normal lung sounds bilaterally. Absent: respiratory distress - Cardiovascular Cardiovascular Exam: Present: regular rate, normal rhythm, normal heart sounds. Absent: bradycardia, tachycardia, irregular rhythm, systolic murmur, diastolic murmur, rubs, gallop - GI/Abdominal GI/Abdominal exam: Present: soft. Absent: distended, tenderness, guarding, rebound, rigid, pulsatile mass - Rectal Rectal exam: Present: deferred - exam: Present: normal inspection. Absent: testicular tenderness External exam: Present: normal external exam, other (there is no testicular tenderness. There is normal testicular lie bilaterally. There is normal cremasteric reflex bilaterally.) - Extremities Exam Extremities exam: Present: normal inspection, full ROM, other (2+ pulses noted in the bilateral upper, lower extremities. Compartments soft. No long bony tenderness. The pelvis is stable.). Absent: calf tenderness - Back Exam Back exam: Present: normal inspection, full ROM. Absent: tenderness, CVA tenderness (R), paraspinal tenderness, vertebral tenderness - Neurological Exam Neurological exam: Present: alert, oriented X3, normal gait, other (Extraocular movements intact. Tongue midline. No facial droop. Facial sensation intact to light touch in the V1, V2, V3 distribution bilaterally. 5 and 5 strength in 4 extremities.. Sensation is intact to light touch in 4 extremities.). Absent : motor sensory deficit - Psychiatric Psychiatric exam: Present: anxious. Absent: homicidal ideation, suicidal ideation - Skin Skin exam: Present: warm, dry, intact, normal color. Absent: rash ED Course Vital Signs 10/04/17 10/04/17 10/04/17 08:21 08:28 08:29 Temperature 98.3 F 98.3 F Pulse Rate 108 H 108 H Respiratory 15 15 Rate Blood Pressure 128/85 Blood Pressure 128/85 [Right] O2 Sat by Pulse 97 97 97 Oximetry 10/04/17 13:23 Temperature 97.8 F Pulse Rate 87 Respiratory 20 Rate Blood Pressure Blood Pressure 136/90 [Right] O2 Sat by Pulse 99 Oximetry - Reevaluation(s) Reevaluation #1: 10/04/17 10:53 Differential diagnosis, including but not limited to: Seizure, intracranial injury, bronchitis, medication noncompliance, arrhythmia, structural cardiac disease, orthostasis Assessment and plan: 47-year-old gentleman with extensive psychiatric history and complaint of seizure versus syncope. The patient was seen in this emergency room yesterday, found to have an acute febrile illness, had a presumptive viral diagnosis, and was discharged with appropriate supportive care. He is low risk by well's criteria, and endorses no pulmonary embolus or DVT risk factors. He is clinically sober at this time, with a GCS of 15, and an NIH score of 0. He does not meet 1013 criteria. He will be loaded with 1 g of Keppra, CT scan of the brain is pending, he will be given albuterol, additional serum toxicology studies are pending, and we will observe the patient on a school lunch monitor. Given young age, normal EKG, structural cardiac disease is very unlikely Reevaluation #2: 10/04/17 13:22 CT scan of the brain is negative. Found to have a subtherapeutic valproic acid level. Patient has been observed in the ER without recurrent syncope, convulsion or loss of consciousness. He is walking around without difficulty. He is loaded with valproic acid and loaded with Keppra. He will be discharged at this time, and I will refill his antiepileptic drug therapy. ED Medical Decision Making - Lab Data Result diagrams: 10/04/17 09:15 10/04/17 09:15 Vital Signs 10/04/17 10/04/17 10/04/17 08:21 08:28 08:29 Temperature 98.3 F 98.3 F Pulse Rate 108 H 108 H Respiratory 15 15 Rate Blood Pressure 128/85 Blood Pressure 128/85 [Right] O2 Sat by Pulse 97 97 97 Oximetry Lab Results 10/04/17 10/04/17 10/04/17 Range/Units 09:15 09:15 09:15 WBC 6.9 (4.5-11.0) K/mm3 RBC 4.54 (3.65-5.03) M/mm3 Hgb 14.7 (11.8-15.2) gm/dl Hct 42.3 (35.5-45.6) % MCV 93 (84-94) fl MCH 32 (28-32) pg MCHC 35 H (32-34) % RDW 13.4 (13.2-15.2) % Plt Count 195 (140-440) K/mm3 Lymph % (Auto) 15.4 (13.4-35.0) % [place] % (Auto) 9.3 H (0.0-7.3) % Eos % (Auto) 1.9 (0.0-4.3) % Baso % (Auto) 0.6 (0.0-1.8) % Lymph # 1.1 L (1.2-5.4) K/mm3 [place] # 0.6 (0.0-0.8) K/mm3 Eos # 0.1 (0.0-0.4) K/mm3 Baso # 0.0 (0.0-0.1) K/mm3 Seg Neutrophils % 72.8 H (40.0-70.0) % Seg Neutrophils # 5.0 (1.8-7.7) K/mm3 Sodium 139 (137-145) mmol/L Potassium 4.4 (3.6-5.0) mmol/L Chloride 105.1 (98-107) mmol/L Carbon Dioxide 21 L (22-30) mmol/L Anion Gap 17 mmol/L BUN 7 L (9-20) mg/dL Creatinine 0.7 L (0.8-1.5) mg/dL Estimated GFR > 60 ml/min BUN/Creatinine Ratio 10 % Glucose 90 (75-100) mg/dL Calcium 8.4 (8.4-10.2) mg/dL Total Bilirubin 0.20 (0.1-1.2) mg/dL AST 15 (5-40) units/L ALT 8 (7-56) units/L Alkaline Phosphatase 68 (35-129) units/L Total Protein 6.4 (6.3-8.2) g/dL Albumin 3.6 L (3.9-5) g/dL Albumin/Globulin Ratio 1.3 % TSH 1.960 (0.270-4.200) mlU/mL Urine Color (Yellow) Urine Turbidity (Clear) Urine pH (5.0-7.0) Ur Specific [place] (1.003-1.030) Urine Protein (Negative) mg/dL Urine Glucose (UA) (Negative) mg/dL Urine Ketones (Negative) mg/dL Urine Blood (Negative) Urine Nitrite (Negative) Urine Bilirubin (Negative) Urine Urobilinogen (<2.0) mg/dL Ur Leukocyte Esterase (Negative) Urine WBC (Auto) (0.0-6.0) /HPF Urine RBC (Auto) (0.0-6.0) /HPF Plasma/Serum Alcohol (0-0.07) % 10/04/17 10/04/17 Range/Units 09:15 09:56 WBC (4.5-11.0) K/mm3 RBC (3.65-5.03) M/mm3 Hgb (11.8-15.2) gm/dl Hct (35.5-45.6) % MCV (84-94) fl MCH (28-32) pg MCHC (32-34) % RDW (13.2-15.2) % Plt Count (140-440) K/mm3 Lymph % (Auto) (13.4-35.0) % [place] % (Auto) (0.0-7.3) % Eos % (Auto) (0.0-4.3) % Baso % (Auto) (0.0-1.8) % Lymph # (1.2-5.4) K/mm3 [place] # (0.0-0.8) K/mm3 Eos # (0.0-0.4) K/mm3 Baso # (0.0-0.1) K/mm3 Seg Neutrophils % (40.0-70.0) % Seg Neutrophils # (1.8-7.7) K/mm3 Sodium (137-145) mmol/L Potassium (3.6-5.0) mmol/L Chloride (98-107) mmol/L Carbon Dioxide (22-30) mmol/L Anion Gap mmol/L BUN (9-20) mg/dL Creatinine (0.8-1.5) mg/dL Estimated GFR ml/min BUN/Creatinine Ratio % Glucose (75-100) mg/dL Calcium (8.4-10.2) mg/dL Total Bilirubin (0.1-1.2) mg/dL AST (5-40) units/L ALT (7-56) units/L Alkaline Phosphatase (35-129) units/L Total Protein (6.3-8.2) g/dL Albumin (3.9-5) g/dL Albumin/Globulin Ratio % TSH (0.270-4.200) mlU/mL Urine Color Yellow (Yellow) Urine Turbidity Clear (Clear) Urine pH 5.0 (5.0-7.0) Ur Specific [place] 1.018 (1.003-1.030) Urine Protein <15 mg/dl (Negative) mg/dL Urine Glucose (UA) Neg (Negative) mg/dL Urine Ketones 20 (Negative) mg/dL Urine Blood Neg (Negative) Urine Nitrite Neg (Negative) Urine Bilirubin Neg (Negative) Urine Urobilinogen < 2.0 (<2.0) mg/dL Ur Leukocyte Esterase Neg (Negative) Urine WBC (Auto) < 1.0 (0.0-6.0) /HPF Urine RBC (Auto) 3.0 (0.0-6.0) /HPF Plasma/Serum Alcohol < 0.01 (0-0.07) % - EKG Data -: EKG Interpreted by [facility] EKG shows normal: sinus rhythm, axis, intervals, QRS complexes, ST-T waves - Radiology Data Radiology results: image reviewed Critical care attestation.: If time is entered above; I have spent that time in minutes in the direct care of this critically ill patient, excluding procedure time. ED Disposition Clinical Impression: History of seizure Disposition: DC-01 TO HOME OR SELFCARE Is pt being admited?: No Does the pt Need Aspirin: No Condition: Stable Instructions: Recurrent Seizures Adult (ED) Additional Instructions: Do not drive or operate motor vehicles for the next 6 months. Follow up with the primary care doctor or neurology specialist within the next 2 weeks. Continue current outpatient medications. Return to the ER right away with fevers, chills, lethargy, irritability, projectile vomiting, change in mental status, confusion, inability to tolerate liquid feeds. Prescriptions: levETIRAcetam [Keppra] 500 mg PO BID #60 tablet Valproic Acid [Depakene] 500 mg PO BID #120 capsule Referrals: [facility] [Provider Group] - 3-5 Days NATALIE STEEL MD [Staff Physician] - 3-5 Days STONE BARRON MD [Referring] - 3-5 Days PRIMARY CAREMD [Primary Care Provider] - 3-5 Days
[2017-10-04 11:04] LABS: Amphetamine Screen,Urine PRESUMPTIVE NEGATIVE; Benzodiazepines Screen,Urine PRESUMPTIVE NEGATIVE; Cocaine Screen,Urine PRESUMPTIVE NEGATIVE; Methadone Screen,Urine PRESUMPTIVE NEGATIVE; Opiate Screen,Urine PRESUMPTIVE NEGATIVE
[2017-10-04 11:15] LABS: Cannabinoid Screen,Urine PRESUMPTIVE POSITIVE
[2017-10-04] MEDS ORDERED: KEPPRA 1,000 MG/NS 0.75% 100ML 1,000 MG/100 ML BAG IV ONE (11:15)
--- NOTE | 2017-10-04 12:26 | Cat Scan Report ---
CT head without contrast: Fall, seizure. Axial images demonstrates normal cerebral anatomy. No focal lesion, hemorrhage, or extracerebral collection identified. The visualized bony structures appear generally unremarkable. A small focal area of mucoperiosteal thickening is identified in the posterior left maxillary sinus. These findings appear unchanged. 2 a description of prior exam on September 29, 2017. Impression: No acute finding.
[2017-10-04] MEDS ORDERED: DepaCON 500 MG in NACL 0.9% 100 ML IV ONE (13:04)
[2017-10-04 13:23] VITALS: BP 136/90
== END 2017-10-04 16:12 | disposition home or self-care (01) ==
LOC: ED 07:55
DX: R56.9 Unspecified convulsions (principal); R05 Cough; N50.819 Testicular pain, unspecified; F17.200 Nicotine dependence, unspecified, uncomplicated; F31.9 Bipolar disorder, unspecified; F20.9 Schizophrenia, unspecified; F15.10 Other stimulant abuse, uncomplicated; Z88.8 Allergy status to other drugs, medicaments and biological substances; Z79.899 Other long term (current) drug therapy
CPT/HCPCS: 36415; 70450; 80053; 80164; 80307; 81001; 82550; 82962; 84443; 85025; 93005; 93010; 96365; 96367; 99285; G0480; J1953; J7030; 80320

== ENCOUNTER 2017-10-10 06:00 | Emergency (ER) | payer MEDICAID ==
[2017-10-10] MEDS ORDERED: NACL 0.9% 1000 ML 1,000 ML IV ONE (08:44)
[2017-10-10] MEDS ORDERED: ATIVAN PO ONE ×2 (08:44→22:37)
--- NOTE | 2017-10-10 08:53 | Emergency Department Report ---
ED Psych HPI - General Time Seen by Provider: 10/10/17 08:04 Source: patient - History of Present Illness Initial Comments: Patient is a 47-year-old male with history of schizophrenia and seizure. Patient presented to the ER stating that he is hearing voices asking him to cut his wrists and kill himself. Patient also stating that he's been having visual hallucinations and is being seen said his. Patient started saying that he felt like he might have a seizure because he is out of his Keppra since 2 days ago because his insurance send his Keppra to a longer address. Patient patient denied any homicidal ideation. Patient had history of suicidal attempt before by trying to cut his left wrist. MD Complaint: suicidal ideation Associated Psychiatric Symptoms: suicidal ideation, auditory hallucinations History of same: Yes Quality: constant If Self Harm: admits thoughts of, has plan, self-inflicted trauma - Related Data Home Medications Medication Instructions Recorded Confirmed Last Taken FLUoxetine HCL [PROzac] 40 mg PO QDAY 10/03/17 10/03/17 Unknown Gabapentin [Neurontin] 300 mg PO BID 10/03/17 10/03/17 Unknown QUEtiapine [SEROquel] 500 mg PO HS 10/03/17 10/03/17 Unknown Quetiapine Fumarate [Seroquel] 300 mg PO QAM 10/03/17 10/03/17 Unknown hydrOXYzine PAMOATE [Vistaril] 25 mg PO Q4HR PRN 10/03/17 10/03/17 Unknown traZODone [Desyrel] 100 mg PO QHS 10/03/17 10/03/17 Unknown Previous Rx's Medication Instructions Recorded Last Taken Type Acetaminophen/Codeine [Tylenol #3] 1 tab PO Q6H PRN #14 tab 10/03/17 Unknown Rx Azithromycin [Zithromax Z-JOYCE] 250 mg PO QDAY #6 tablet 10/03/17 Unknown Rx Ibuprofen [Motrin] 600 mg PO Q8H PRN #30 tablet 10/03/17 Unknown Rx cephALEXin [Keflex] 500 mg PO Q6HR #30 capsule 10/03/17 Unknown Rx Valproic Acid [Depakene] 500 mg PO BID #120 capsule 10/04/17 Unknown Rx levETIRAcetam [Keppra] 500 mg PO BID #60 tablet 10/04/17 Unknown Rx Allergies Allergy/AdvReac Type Severity Reaction Status Date / Time risperidone [From Risperdal] Allergy Angioedema Verified 05/14/17 08:42 haloperidol AdvReac Angioedema Verified 05/14/17 08:42 ED Review of Systems ROS: Stated complaint: Other details as noted in HPI Comment: All other systems reviewed and negative Constitutional: denies: chills, fever Respiratory: denies: cough, orthopnea, shortness of breath, SOB with exertion, SOB at rest, wheezing Cardiovascular: denies: chest pain, palpitations, dyspnea on exertion Gastrointestinal: denies: abdominal pain, nausea, vomiting, diarrhea, constipation, hematemesis, melena, hematochezia Genitourinary: denies: urgency, dysuria, frequency, hematuria Neurological: denies: headache, weakness, numbness, paresthesias, confusion, abnormal gait ED Past Medical Hx - Past Medical History Hx Seizures: Yes Hx Psychiatric Treatment: Yes (Bipolar, Schizophrenia, Depression) Additional medical history: Pt unable to communicate to answer questions during triage - Surgical History Hx Appendectomy: Yes - Social History Smoking Status: Current Every Day Smoker Substance Use Type: Methamphetamines - Medications Home Medications: Home Medications Medication Instructions Recorded Confirmed Last Taken Type Acetaminophen/Codeine [Tylenol #3] 1 tab PO Q6H PRN #14 tab 10/03/17 Unknown Rx Azithromycin [Zithromax Z-JOYCE] 250 mg PO QDAY #6 tablet 10/03/17 Unknown Rx FLUoxetine HCL [PROzac] 40 mg PO QDAY 10/03/17 10/03/17 Unknown History Gabapentin [Neurontin] 300 mg PO BID 10/03/17 10/03/17 Unknown History Ibuprofen [Motrin] 600 mg PO Q8H PRN #30 tablet 10/03/17 Unknown Rx QUEtiapine [SEROquel] 500 mg PO HS 10/03/17 10/03/17 Unknown History Quetiapine Fumarate [Seroquel] 300 mg PO QAM 10/03/17 10/03/17 Unknown History cephALEXin [Keflex] 500 mg PO Q6HR #30 capsule 10/03/17 Unknown Rx hydrOXYzine PAMOATE [Vistaril] 25 mg PO Q4HR PRN 10/03/17 10/03/17 Unknown History traZODone [Desyrel] 100 mg PO QHS 10/03/17 10/03/17 Unknown History Valproic Acid [Depakene] 500 mg PO BID #120 capsule 10/04/17 Unknown Rx levETIRAcetam [Keppra] 500 mg PO BID #60 tablet 10/04/17 Unknown Rx ED Physical Exam - General Limitations: No Limitations General appearance: alert, in no apparent distress, anxious - Head Head exam: Present: atraumatic - Eye Eye exam: Present: normal appearance, PERRL - ENT ENT exam: Present: normal exam, normal orophraynx - Neck Neck exam: Present: normal inspection, full ROM. Absent: tenderness, meningismus, lymphadenopathy, thyromegaly - Respiratory Respiratory exam: Present: normal lung sounds bilaterally. Absent: respiratory distress, wheezes, chest wall tenderness - Cardiovascular Cardiovascular Exam: Present: regular rate, normal rhythm, normal heart sounds - GI/Abdominal GI/Abdominal exam: Present: soft, normal bowel sounds. Absent: distended, tenderness, guarding, rebound, rigid, organomegaly, mass, bruit, pulsatile mass , hernia - Extremities Exam Extremities exam: Present: normal inspection, full ROM, normal capillary refill - Back Exam Back exam: Present: normal inspection, full ROM. Absent: tenderness, CVA tenderness (R), CVA tenderness (L), muscle spasm, paraspinal tenderness, vertebral tenderness, rash noted - Neurological Exam Neurological exam: Present: alert, oriented X3, CN II-XII intact, normal gait, reflexes normal - Psychiatric Psychiatric exam: Present: depressed, anxious, suicidal ideation. Absent: manic , homicidal ideation - Skin Skin exam: Present: warm, intact, normal color Critical care attestation.: If time is entered above; I have spent that time in minutes in the direct care of this critically ill patient, excluding procedure time. ED Disposition Clinical Impression: History of seizure, Suicidal ideation, Auditory hallucination, Visual hallucination Disposition: [id number]/TX-[id number] PSY HOSP/PSY UNIT Is pt being admited?: No Condition: Stable Referrals: PRIMARY CARE, [Primary Care Provider] - 3-5 Days
[2017-10-10] MEDS ORDERED: KEPPRA 500 MG/NS 0.82% 100 ML 500 MG/100 ML BAG IV NR (09:00)
[2017-10-10 09:23] LABS: Basophils % (Auto) 0.5 % (0.0-1.8); Eosinophils # (Auto) 0.1 K/mm3 (0.0-0.4); Eosinophils % (Auto) 1.9 % (0.0-4.3); Hematocrit 45.8 % (35.5-45.6); Hemoglobin 15.6 gm/dl (11.8-15.2); Lymphocytes # (Auto) 1.6 K/mm3 (1.2-5.4); Lymphocytes % (Auto) 23.4 % (13.4-35.0); Mean Corpuscular HGB Conc 34 % (32-34); Mean Corpuscular Hemoglobin 32 pg (28-32); Mean Corpuscular Volume 94 fl (84-94); Monocytes # (Auto) 0.6 K/mm3 (0.0-0.8); Monocytes % (Auto) 8.7 % (0.0-7.3); Platelet Count 261 K/mm3 (140-440); Red Blood Count 4.87 M/mm3 (3.65-5.03); Red Cell Distribution Width 13.5 % (13.2-15.2)
[2017-10-10 09:37] LABS: BUN/Creatinine Ratio 14; Blood Urea Nitrogen 10 mg/dL (9-20); Calcium 8.9 mg/dL (8.4-10.2); Hemolysis Index 9
[2017-10-10] MEDS ORDERED: VISTARIL ONE (14:07)
[2017-10-10] MEDS ORDERED: VISTARIL PO ONE (14:13)
[2017-10-10 21:56] VITALS: BP 119/65
[2017-10-10 23:32] LABS: Amphetamine Screen,Urine PRESUMPTIVE NEGATIVE; Benzodiazepines Screen,Urine PRESUMPTIVE NEGATIVE; Cocaine Screen,Urine PRESUMPTIVE NEGATIVE; Methadone Screen,Urine PRESUMPTIVE NEGATIVE; Opiate Screen,Urine PRESUMPTIVE NEGATIVE
[2017-10-10 23:58] LABS: Cannabinoid Screen,Urine PRESUMPTIVE POSITIVE
[2017-10-11 02:53] LABS: Bilirubin,Urine Negative (Negative); Color,Urine Yellow (Yellow)
[2017-10-11 02:54] LABS: Blood,Urine Negative (Negative); Protein,Urine <15 mg/dL mg/dL (Negative)
[2017-10-11] MEDS ORDERED: KEPPRA PO SCH (10:00)
--- NOTE | 2017-10-11 14:56 | Consultation ---
History of Present Illness - Reason for Consult Consult date: 10/11/17 Reason for consult: Initial Psychiatric Evaluation Medications and Allergies Allergies Allergy/AdvReac Type Severity Reaction Status Date / Time risperidone [From Risperdal] Allergy Angioedema Verified 05/14/17 08:42 haloperidol AdvReac Angioedema Verified 05/14/17 08:42 Home Medications Medication Instructions Recorded Confirmed Last Taken Type Acetaminophen/Codeine [Tylenol #3] 1 tab PO Q6H PRN #14 tab 10/03/17 Unknown Rx Azithromycin [Zithromax Z-JOYCE] 250 mg PO QDAY #6 tablet 10/03/17 Unknown Rx FLUoxetine HCL [PROzac] 40 mg PO QDAY 10/03/17 10/03/17 Unknown History Gabapentin [Neurontin] 300 mg PO BID 10/03/17 10/03/17 Unknown History Ibuprofen [Motrin] 600 mg PO Q8H PRN #30 tablet 10/03/17 Unknown Rx QUEtiapine [SEROquel] 500 mg PO HS 10/03/17 10/03/17 Unknown History Quetiapine Fumarate [Seroquel] 300 mg PO QAM 10/03/17 10/03/17 Unknown History cephALEXin [Keflex] 500 mg PO Q6HR #30 capsule 10/03/17 Unknown Rx hydrOXYzine PAMOATE [Vistaril] 25 mg PO Q4HR PRN 10/03/17 10/03/17 Unknown History traZODone [Desyrel] 100 mg PO QHS 10/03/17 10/03/17 Unknown History Valproic Acid [Depakene] 500 mg PO BID #120 capsule 10/04/17 Unknown Rx levETIRAcetam [Keppra] 500 mg PO BID #60 tablet 10/04/17 Unknown Rx Mental Status Exam - Vital signs Last Vital Signs Temp 98.7 F 10/10/17 19:55 Pulse 76 10/10/17 19:55 Resp 18 10/10/17 19:55 BP 119/65 10/10/17 19:55 Pulse Ox 99 10/10/17 19:55 Results Result Diagrams: 10/10/17 09:05 10/10/17 09:05 All other labs normal.
== END 2017-10-11 14:08 ==
LOC: ED 06:00
DX: R45.851 Suicidal ideations (principal); R44.0 Auditory hallucinations; R44.1 Visual hallucinations; F20.9 Schizophrenia, unspecified; F31.9 Bipolar disorder, unspecified; F32.9 Major depressive disorder, single episode, unspecified; F17.200 Nicotine dependence, unspecified, uncomplicated; F15.10 Other stimulant abuse, uncomplicated; Z88.8 Allergy status to other drugs, medicaments and biological substances
CPT/HCPCS: 36415; 80048; 80307; 81001; 85025; 96374; 99285; G0480; J1953; J7030; 80320; Q0177

== ENCOUNTER 2017-11-01 19:38 | Emergency (ER) | payer MEDICAID ==
[2017-11-02 04:47] VITALS: BP 124/86
[2017-11-02] MEDS ORDERED: VISTARIL PO PRN (04:52)
--- NOTE | 2017-11-02 04:53 | Emergency Department Report ---
ED General Adult HPI - General Chief complaint: Medical Clearance Stated complaint: MH/ OFF MEDS 6 DAYS Source: patient, RN notes reviewed, old records reviewed Mode of arrival: Ambulatory Limitations: No Limitations - History of Present Illness Initial comments: This is a 47-year-old gentleman whom I evaluated in the past. Please see my note from 10/04/2017 for more complete details and the patient's past medical history. Today, the patient comes to the ER requesting his typical outpatient medications. He reports that he has switched his usp, and because of the transition, he has not received his standard outpatient medications for 6 days. He reports that his usp is working to fix this, he expects that his outpatient prescriptions will be waiting for him within the next 24 hours. He reports resolved nausea and vomiting, and requests his standard medications to be given to him. He denies headache, neck pain, chest pain, abdominal pain, shortness of breath, homicidality, suicidality. He reports that his symptoms of unease typically resolve when he takes his medicines. -: Gradual, days(s) Severity scale (0 -10): 8 Consistency: constant Improves with: medication Worsens with: other (not taking his medicine) Associated Symptoms: nausea/vomiting - Related Data Home Medications Medication Instructions Recorded Confirmed Last Taken QUEtiapine [SEROquel] 500 mg PO HS 10/03/17 11/01/17 10/27/17 traZODone [Desyrel] 100 mg PO QHS 10/03/17 11/01/17 10/27/17 Previous Rx's Medication Instructions Recorded Last Taken Type levETIRAcetam [Keppra] 500 mg PO BID #60 tablet 10/04/17 10/27/17 Rx Gabapentin [Neurontin] 300 mg PO BID #20 capsule 11/02/17 Unknown Rx Quetiapine Fumarate [Seroquel] 300 mg PO QAM #10 tablet 11/02/17 Unknown Rx Sertraline [Zoloft] 50 mg PO DAILY #10 tablet 11/02/17 Unknown Rx Valproic Acid [Depakene] 500 mg PO BID #120 capsule 11/02/17 Unknown Rx Valproic Acid [Depakene] 500 mg PO BID #40 capsule 11/02/17 Unknown Rx hydrOXYzine PAMOATE [Vistaril] 25 mg PO Q4HR PRN #30 capsule 11/02/17 Unknown Rx levETIRAcetam [Keppra TAB] 500 mg PO ONCE #60 tablet 11/02/17 Unknown Rx traZODone [Desyrel] 100 mg PO QHS #10 tablet 11/02/17 Unknown Rx Allergies Allergy/AdvReac Type Severity Reaction Status Date / Time risperidone [From Risperdal] Allergy Angioedema Verified 05/14/17 08:42 haloperidol AdvReac Angioedema Verified 05/14/17 08:42 ED Review of Systems ROS: Stated complaint: MH/ OFF MEDS 6 DAYS Other details as noted in HPI Constitutional: denies: fever Eyes: denies: eye discharge ENT: denies: epistaxis Respiratory: denies: cough Cardiovascular: denies: chest pain Gastrointestinal: nausea, vomiting. denies: abdominal pain Neurological: denies: confusion Psychiatric: anxiety. denies: homicidal thoughts, suicidal thoughts ED Past Medical Hx - Past Medical History Previous Medical History?: Yes Hx Seizures: Yes Hx Psychiatric Treatment: Yes (Bipolar, Schizophrenia, Depression) Additional medical history: Pt unable to communicate to answer questions during triage - Surgical History Past Surgical History?: Yes Hx Appendectomy: Yes - Social History Smoking Status: Current Every Day Smoker Substance Use Type: Marijuana - Medications Home Medications: Home Medications Medication Instructions Recorded Confirmed Last Taken Type QUEtiapine [SEROquel] 500 mg PO HS 10/03/17 11/01/17 10/27/17 History traZODone [Desyrel] 100 mg PO QHS 10/03/17 11/01/17 10/27/17 History levETIRAcetam [Keppra] 500 mg PO BID #60 tablet 10/04/17 11/01/17 10/27/17 Rx Gabapentin [Neurontin] 300 mg PO BID #20 capsule 11/02/17 Unknown Rx Quetiapine Fumarate [Seroquel] 300 mg PO QAM #10 tablet 11/02/17 Unknown Rx Sertraline [Zoloft] 50 mg PO DAILY #10 tablet 11/02/17 Unknown Rx Valproic Acid [Depakene] 500 mg PO BID #120 capsule 11/02/17 Unknown Rx Valproic Acid [Depakene] 500 mg PO BID #40 capsule 11/02/17 Unknown Rx hydrOXYzine PAMOATE [Vistaril] 25 mg PO Q4HR PRN #30 capsule 11/02/17 Unknown Rx levETIRAcetam [Keppra TAB] 500 mg PO ONCE #60 tablet 11/02/17 Unknown Rx traZODone [Desyrel] 100 mg PO QHS #10 tablet 11/02/17 Unknown Rx ED Physical Exam - General Limitations: No Limitations General appearance: alert, anxious - Head Head exam: Present: atraumatic, normocephalic - Eye Eye exam: Present: normal appearance, EOMI. Absent: nystagmus - ENT ENT exam: Present: normal exam, normal orophraynx, mucous membranes moist, normal external ear exam - Neck Neck exam: Present: normal inspection, full ROM - Respiratory Respiratory exam: Present: normal lung sounds bilaterally. Absent: respiratory distress - Cardiovascular Cardiovascular Exam: Present: regular rate, normal rhythm, normal heart sounds. Absent: bradycardia, tachycardia, irregular rhythm, systolic murmur, diastolic murmur, rubs, gallop - GI/Abdominal GI/Abdominal exam: Present: soft, normal bowel sounds. Absent: distended, tenderness, guarding, rebound, rigid, pulsatile mass - Rectal Rectal exam: Present: deferred - Extremities Exam Extremities exam: Present: normal inspection, full ROM, normal capillary refill , other (2+ pulses noted in the bilateral upper extremities. There is no long bony tenderness. The compartments are soft. The pelvis is stable.). Absent: tenderness, pedal edema, joint swelling, calf tenderness - Back Exam Back exam: Present: normal inspection, full ROM. Absent: tenderness, paraspinal tenderness, vertebral tenderness - Neurological Exam Neurological exam: Present: alert, oriented X3, CN II-XII intact, normal gait, other (Extraocular movements intact. Tongue midline. No facial droop. Facial sensation intact to light touch in the V1, V2, V3 distribution bilaterally. 5 and 5 strength in 4 extremities.. Sensation is intact to light touch in 4 extremities.). Absent: motor sensory deficit - Psychiatric Psychiatric exam: Present: anxious. Absent: homicidal ideation, suicidal ideation - Skin Skin exam: Present: warm, dry, intact, normal color. Absent: rash ED Course Vital Signs 11/01/17 11/02/17 20:01 04:42 Temperature 97.9 F Pulse Rate 105 H 87 Respiratory 20 18 Rate Blood Pressure 123/94 Blood Pressure 124/86 [Left] O2 Sat by Pulse 96 100 Oximetry ED Medical Decision Making - Lab Data Vital Signs 11/01/17 11/02/17 20:01 04:42 Temperature 97.9 F Pulse Rate 105 H 87 Respiratory 20 18 Rate Blood Pressure 123/94 Blood Pressure 124/86 [Left] O2 Sat by Pulse 96 100 Oximetry - Medical Decision Making Differential diagnosis, including but not limited to: Medication refill, medication administration Assessment and plan: 47-year-old gentleman who requests a standard daily medications. Patient is observed in the ER for 10 hours without clinical decompensation. He walks with a steady gait, and is tolerating oral feeds. Patient was given his medications. He will be given a 10 day refill on his medications just in case he has difficulty getting his prescriptions as an outpatient. Critical care attestation.: If time is entered above; I have spent that time in minutes in the direct care of this critically ill patient, excluding procedure time. ED Disposition Clinical Impression: Medication refill Disposition: DC-01 TO HOME OR SELFCARE Is pt being admited?: No Does the pt Need Aspirin: No Condition: Stable Additional Instructions: Take the medications as directed. Diet as tolerated. Follow up with your primary care doctor within the next month. Return to the ER right away with new , worsened or different symptoms. Referrals: [facility] [Provider Group] - 3-5 Days
[2017-11-02] MEDS ORDERED: ZOLOFT ONE (05:20)
[2017-11-02] MEDS ORDERED: KEPPRA PO ONE ×2 (05:20→05:26)
[2017-11-02] MEDS ORDERED: ZOLOFT PO ONE (05:26)
[2017-11-02] MEDS ORDERED: ZOLOFT PO SCH (10:00)
[2017-11-02] MEDS ORDERED: KEPPRA PO SCH (10:00)
[2017-11-02] MEDS ORDERED: NON-FORMULARY (Quetiapine Fumarate [Seroquel] 300 MG) PO SCH (10:00)
[2017-11-02] MEDS ORDERED: DESYREL PO SCH (22:00)
== END 2017-11-02 08:00 | disposition home or self-care (01) ==
LOC: ED 19:38
DX: R11.2 Nausea with vomiting, unspecified (principal); F41.9 Anxiety disorder, unspecified; Z76.0 Encounter for issue of repeat prescription; F20.9 Schizophrenia, unspecified; F17.200 Nicotine dependence, unspecified, uncomplicated; F12.10 Cannabis abuse, uncomplicated; Z90.49 Acquired absence of other specified parts of digestive tract; Z88.4 Allergy status to anesthetic agent
CPT/HCPCS: 99282

== ENCOUNTER 2017-11-03 07:17 | Emergency (ER) | payer MEDICAID ==
--- NOTE | 2017-11-03 08:02 | Emergency Department Report ---
ED Psych HPI - General Chief Complaint: Psych Stated Complaint: SUICIDAL Time Seen by Provider: 11/03/17 08:02 Source: patient Mode of arrival: Ambulatory Limitations: No Limitations - History of Present Illness Initial Comments: Patient is complaining of hearing voices telling him he is worthless and he shouldn't be around anymore. He said he cannot deal with this anymore and he wants to end it right now. When asked how he wanted to end it he said he will walk in front of a bus and get killed by the bus or slash his wrist with a knife and blled to [place]. Patient is having suicidal ideation and he is voices all day long. He has not been taking his psychiatric medication for the past 8 days. He has history of schizophrenia, bipolar disorder and depression. Patient is shaking on asking for help in the ED. MD Complaint: suicidal ideation, feels depressed -: Gradual Associated Psychiatric Symptoms: depression, suicidal ideation, auditory hallucinations History of same: Yes Quality: constant Improves With: medication Worsens With: none Context: not taking psychiatric Associated Symptoms: denies other symptoms Treatments Prior to Arrival: none If Self Harm: admits thoughts of, has plan, self-inflicted trauma - Related Data Home Medications Medication Instructions Recorded Confirmed Last Taken QUEtiapine [SEROquel] 500 mg PO HS 10/03/17 11/01/17 10/27/17 traZODone [Desyrel] 100 mg PO QHS 10/03/17 11/01/17 10/27/17 Previous Rx's Medication Instructions Recorded Last Taken Type levETIRAcetam [Keppra] 500 mg PO BID #60 tablet 10/04/17 10/27/17 Rx Gabapentin [Neurontin] 300 mg PO BID #20 capsule 11/02/17 Unknown Rx Quetiapine Fumarate [Seroquel] 300 mg PO QAM #10 tablet 11/02/17 Unknown Rx Sertraline [Zoloft] 50 mg PO DAILY #10 tablet 11/02/17 Unknown Rx Valproic Acid [Depakene] 500 mg PO BID #120 capsule 11/02/17 Unknown Rx Valproic Acid [Depakene] 500 mg PO BID #40 capsule 11/02/17 Unknown Rx hydrOXYzine PAMOATE [Vistaril] 25 mg PO Q4HR PRN #30 capsule 11/02/17 Unknown Rx levETIRAcetam [Keppra TAB] 500 mg PO ONCE #60 tablet 11/02/17 Unknown Rx traZODone [Desyrel] 100 mg PO QHS #10 tablet 11/02/17 Unknown Rx Allergies Allergy/AdvReac Type Severity Reaction Status Date / Time risperidone [From Risperdal] Allergy Angioedema Verified 05/14/17 08:42 haloperidol AdvReac Angioedema Verified 05/14/17 08:42 ED Review of Systems ROS: Stated complaint: SUICIDAL Other details as noted in HPI Comment: All other systems reviewed and negative Constitutional: denies: chills, fever Eyes: denies: eye pain ENT: denies: ear pain Respiratory: denies: cough, orthopnea, shortness of breath Cardiovascular: denies: chest pain, palpitations, dyspnea on exertion Endocrine: no symptoms reported Gastrointestinal: denies: abdominal pain, nausea, vomiting, diarrhea, constipation Genitourinary: denies: urgency, dysuria Musculoskeletal: denies: back pain, joint swelling Skin: denies: rash, lesions, change in color Neurological: denies: headache, weakness, numbness, paresthesias, confusion Psychiatric: anxiety, depression, auditory hallucinations, suicidal thoughts. denies: visual hallucinations, homicidal thoughts Hematological/Lymphatic: denies: easy bleeding, easy bruising ED Past Medical Hx - Past Medical History Previous Medical History?: Yes Hx Seizures: Yes Hx Psychiatric Treatment: Yes (Bipolar, Schizophrenia, Depression) Additional medical history: Pt unable to communicate to answer questions during triage - Surgical History Hx Appendectomy: Yes - Social History Smoking Status: Current Every Day Smoker Substance Use Type: Marijuana - Medications Home Medications: Home Medications Medication Instructions Recorded Confirmed Last Taken Type QUEtiapine [SEROquel] 500 mg PO HS 10/03/17 11/01/17 10/27/17 History traZODone [Desyrel] 100 mg PO QHS 10/03/17 11/01/17 10/27/17 History levETIRAcetam [Keppra] 500 mg PO BID #60 tablet 10/04/17 11/01/17 10/27/17 Rx Gabapentin [Neurontin] 300 mg PO BID #20 capsule 11/02/17 Unknown Rx Quetiapine Fumarate [Seroquel] 300 mg PO QAM #10 tablet 11/02/17 Unknown Rx Sertraline [Zoloft] 50 mg PO DAILY #10 tablet 11/02/17 Unknown Rx Valproic Acid [Depakene] 500 mg PO BID #120 capsule 11/02/17 Unknown Rx Valproic Acid [Depakene] 500 mg PO BID #40 capsule 11/02/17 Unknown Rx hydrOXYzine PAMOATE [Vistaril] 25 mg PO Q4HR PRN #30 capsule 11/02/17 Unknown Rx levETIRAcetam [Keppra TAB] 500 mg PO ONCE #60 tablet 11/02/17 Unknown Rx traZODone [Desyrel] 100 mg PO QHS #10 tablet 11/02/17 Unknown Rx ED Physical Exam - General Limitations: No Limitations General appearance: alert, anxious - Head Head exam: Present: atraumatic, normocephalic, normal inspection - Eye Eye exam: Present: normal appearance, PERRL, EOMI Pupils: Present: normal accommodation - ENT ENT exam: Present: normal exam, normal orophraynx, mucous membranes moist - Neck Neck exam: Present: normal inspection, full ROM. Absent: tenderness - Respiratory Respiratory exam: Present: normal lung sounds bilaterally. Absent: respiratory distress, wheezes, rales, rhonchi, stridor - Cardiovascular Cardiovascular Exam: Present: normal rhythm, tachycardia, normal heart sounds - GI/Abdominal GI/Abdominal exam: Present: soft, normal bowel sounds. Absent: distended, tenderness, guarding, rebound, rigid - Extremities Exam Extremities exam: Present: normal inspection, full ROM, normal capillary refill. Absent: tenderness - Back Exam Back exam: Present: normal inspection, full ROM - Neurological Exam Neurological exam: Present: alert, oriented X3, CN II-XII intact - Psychiatric Psychiatric exam: Present: depressed, anxious, flat affect, suicidal ideation - Skin Skin exam: Present: warm, dry, intact, normal color. Absent: rash ED Course Vital Signs 11/03/17 07:45 Temperature 99.4 F Pulse Rate 112 H Respiratory 16 Rate Blood Pressure 122/86 O2 Sat by Pulse 95 Oximetry - Reevaluation(s) Reevaluation #1: 11/03/17 10:16 Patient is medically clear for psychiatric evaluation. ED Medical Decision Making - Lab Data Result diagrams: 11/03/17 08:00 11/03/17 08:00 - Medical Decision Making Suicide ideation. Auditory hallucination. History of schizophrenia. History of bipolar disorder. Critical care attestation.: If time is entered above; I have spent that time in minutes in the direct care of this critically ill patient, excluding procedure time. ED Disposition Clinical Impression: Marijuana abuse, Suicide ideation, Auditory hallucinations, History of schizophrenia, History of bipolar disorder Disposition: DC/TX-[id number] PSY HOSP/PSY UNIT Is pt being admited?: No Does the pt Need Aspirin: No Condition: Stable Referrals: PRIMARY CARE, [Primary Care Provider] - 3-5 Days Time of Disposition: 10:16
[2017-11-03 08:23] LABS: Basophils % (Auto) 0.6 % (0.0-1.8); Eosinophils # (Auto) 0.1 K/mm3 (0.0-0.4); Eosinophils % (Auto) 1.9 % (0.0-4.3); Hematocrit 46.2 % (35.5-45.6); Hemoglobin 15.7 gm/dl (11.8-15.2); Lymphocytes # (Auto) 1.3 K/mm3 (1.2-5.4); Lymphocytes % (Auto) 21.5 % (13.4-35.0); Mean Corpuscular HGB Conc 34 % (32-34); Mean Corpuscular Hemoglobin 32 pg (28-32); Mean Corpuscular Volume 95 fl (84-94); Monocytes # (Auto) 0.5 K/mm3 (0.0-0.8); Monocytes % (Auto) 8.2 % (0.0-7.3); Platelet Count 257 K/mm3 (140-440); Red Blood Count 4.85 M/mm3 (3.65-5.03)
[2017-11-03] MEDS ORDERED: ATIVAN PO ONE (08:29)
[2017-11-03 08:33] LABS: Bilirubin,Urine NEG (Negative); Blood,Urine NEG (Negative); Color,Urine Amber (Yellow); Mucus,Urine FEW /HPF; Protein,Urine <15 mg/dL mg/dL (Negative)
[2017-11-03 08:35] LABS: BUN/Creatinine Ratio 16; Blood Urea Nitrogen 13 mg/dL (9-20); Hemolysis Index 10
[2017-11-03 08:56] LABS: Amphetamine Screen,Urine PRESUMPTIVE NEGATIVE; Cocaine Screen,Urine PRESUMPTIVE NEGATIVE; Methadone Screen,Urine PRESUMPTIVE NEGATIVE; Opiate Screen,Urine PRESUMPTIVE NEGATIVE
[2017-11-03 09:14] LABS: Benzodiazepines Screen,Urine PRESUMPTIVE POSITIVE; Cannabinoid Screen,Urine PRESUMPTIVE POSITIVE
[2017-11-04] MEDS: KEPPRA PO SCH ×2 (12:34→22:26)
[2017-11-04] MEDS: VISTARIL PO PRN ×3 (12:35→22:28)
[2017-11-04] MEDS ORDERED: ATIVAN PO ONE (18:22)
--- NOTE | 2017-11-04 19:31 | Consultation ---
History of Present Illness - Reason for Consult Consult date: 11/04/17 Reason for consult: 1013, psychiatric evaluation - Chief Complaint Chief complaint: "no meds in 8 days" - History of Present Psychiatric Illness 47 year old WM seen for psychiatric evaluation in the ER. He presented with complaints of hearing voices telling him he is worthless and he shouldn't be around anymore. He states he has been off his medications for 8 days. He states he wants to step in front of a bus or slash his wrist with a knife and bleed to . He states his 1 month ago and he has been moving from one [facility] to another. He states he takes seroquel 300mg hs and 650mg hs, keppra, depakote, vistaril, trazodone 200mg hs, klonopin 1mg bid. He states he wants off seroquel. He states he has history of schizophrenia, bipolar disorder and depression. He reports vomiting, shaking, and short term memory loss. He denies use of alcohol or illicit substances with the exception of marijuana. Medications and Allergies Allergies Allergy/AdvReac Type Severity Reaction Status Date / Time risperidone [From Risperdal] Allergy Angioedema Verified 05/14/17 08:42 haloperidol AdvReac Angioedema Verified 05/14/17 08:42 Home Medications Medication Instructions Recorded Confirmed Last Taken Type QUEtiapine [SEROquel] 300 mg PO HS 10/03/17 11/03/17 10/27/17 History levETIRAcetam [Keppra] 500 mg PO BID #60 tablet 10/04/17 11/03/17 10/27/17 Rx Quetiapine Fumarate [Seroquel] 300 mg PO QAM #10 tablet 11/02/17 11/03/17 Unknown Rx Valproic Acid [Depakene] 500 mg PO BID #40 capsule 11/02/17 11/03/17 Unknown Rx hydrOXYzine PAMOATE [Vistaril] 25 mg PO Q4HR PRN #30 capsule 11/02/17 11/03/17 Unknown Rx traZODone [Desyrel] 100 mg PO QHS #10 tablet 11/02/17 11/03/17 Unknown Rx Active Meds: Active Medications Hydroxyzine Pamoate (Vistaril) 25 mg PO Q4HR PRN PRN Reason: Anxiety Last Admin: 11/04/17 12:35 Dose: 25 mg Levetiracetam (Keppra) 500 mg PO BID [facility] Last Admin: 11/04/17 12:34 Dose: 500 mg Quetiapine Fumarate (Seroquel) 300 mg PO QHS [facility] Quetiapine Fumarate (Seroquel) 300 mg PO QAM BERTA Trazodone HCl (Desyrel) 100 mg PO QHS [facility] Valproic Acid (Depakene) 500 mg PO BID [facility] Last Admin: 11/04/17 12:34 Dose: 500 mg Past psychiatric history - Past Medical History Past Medical History: seizures - past Psychiatric treatment and history psychiatric treatment history: history of hospitalizations previously diagnosed with schizophrenia and bipolar - Social History Social history: other (denies alcohol use. reports marijuana use. moved from one [facility] to another) Mental Status Exam - Vital signs Last Vital Signs Temp 98.9 F 11/03/17 19:32 Pulse 85 11/03/17 19:32 Resp 16 11/03/17 19:32 BP 97/68 11/03/17 19:32 Pulse Ox 97 11/03/17 19:32 - Exam Orientation: time, place, person Affect: depressed, anxious Mood: congruent with affect Thought content: paranoia Thought Process: Intact Perceptions: auditory, command, hallucinations (to kill himself) Concentration: focused Motor activity: other (moderate generalized tremors) Level of consciousness: alert Memory: Recent Impaired (self reports short term memory loss) Sleep Symptoms: Insomnia Appetite: decreased Interaction: cooperative Results Result Diagrams: 11/03/17 08:00 11/03/17 08:00 All other labs normal. Assessment and Plan Assessment and plan: Impression: reports history of schizophrenia He requests off seroquel and wants to be on thorazine. r/o schizoaffective disorder, bipolar type r/o benzo withdrawal He states his urine is dark and he is having muscle cramps Recommendation: ck, LFTs, depakote level, and ammonia level ordered continue 1013 and transfer to inpatient psychiatric facility for stabilization give ativan 1mg po x 1 for tremors seroquel, trazodone, vistaril, and depakote started by ER prior to evaluation
[2017-11-04 20:26] LABS: Alanine Aminotransferase 17 units/L (7-56)
[2017-11-04 20:37] LABS: Bilirubin,Direct < 0.2 mg/dL (0-0.2)
[2017-11-04] MEDS: DESYREL PO SCH (22:26)
[2017-11-05] MEDS ORDERED: NON-FORMULARY (Quetiapine Fumarate [Seroquel] 300 MG) PO SCH (10:00)
[2017-11-05] MEDS: KEPPRA PO SCH ×2 (10:15→22:45)
[2017-11-05] MEDS: VISTARIL PO PRN (17:45)
--- NOTE | 2017-11-05 20:10 | Progress Note ---
Subjective - Reason for Consult Consult date: 11/05/17 Reason for consult: follow up - Chief Complaint Chief complaint: "I'm worse." 47 year old WM seen for psychiatric evaluation in the ER. He presented with complaints of hearing voices telling him he is worthless and he shouldn't be around anymore. He states he has been off his medications for 8 days. He states he wants to step in front of a bus or slash his wrist with a knife and bleed to . He states his 1 month ago and he has been moving from one ch[facility] to another. His most recent place to stay was [facility]. He states he takes seroquel 300mg hs and 650mg hs, keppra, depakote, vistaril, trazodone 200mg hs, klonopin 1mg bid. He states he wants off seroquel. He states he has history of schizophrenia, bipolar disorder and depression. He reports vomiting, shaking, and short term memory loss. Tremors appears to have decreased today. He denies use of alcohol or illicit substances with the exception of marijuana. - Exam Orientation: time, place, person Affect: depressed, anxious Mood: congruent with affect Thought content: paranoia Thought Process: Intact Perceptions: auditory, command, hallucinations (to kill himself) Concentration: focused Motor activity: other (moderate generalized tremors) Level of consciousness: alert Memory: Recent Impaired (self reports short term memory loss) Sleep Symptoms: Insomnia Appetite: decreased Interaction: cooperative Assessment and plan: Impression: reports history of schizophrenia He requests off seroquel and wants to be on thorazine. r/o schizoaffective disorder, bipolar type r/o tardive dyskinesia has seizures Recommendation: monitor ammonia (currently 71) continue 1013 and transfer to inpatient psychiatric facility for stabilization seroquel, trazodone, vistaril, and depakote started by ER MD prior to evaluation Mental Status Exam - Vital signs Last Vital Signs Temp 98.2 F 11/05/17 10:00 Pulse 76 11/05/17 10:00 Resp 22 11/05/17 10:00 BP 114/67 11/05/17 10:00 Pulse Ox 97 11/05/17 10:00
[2017-11-05] MEDS: DESYREL PO SCH (22:45)
[2017-11-06 07:58] LABS: Lipase 38 units/L (13-60)
[2017-11-06] MEDS: KEPPRA PO SCH ×2 (10:29→22:55)
--- NOTE | 2017-11-06 13:12 | Progress Note ---
Subjective - Reason for Consult Consult date: 11/06/17 Reason for consult: Psychiatry Follow-up - Chief Complaint Chief complaint: "I am depressed" 47 year old WM seen for psychiatric evaluation in the ER. He presented with complaints of hearing voices telling him he is worthless and he shouldn't be around anymore. Today the patient is calm and cooperative, but withdrawn during the assessment. He stated that the voices are driving him "crazy." He stated that he want his life to end soon. He would not confirm or deny a suicide plan when asked. He denies Hi's and VH's. He denies any side effects of medications. Mental Status Exam - Vital signs Last Vital Signs Temp 98.1 F 11/06/17 10:00 Pulse 75 11/06/17 10:00 Resp 18 11/06/17 10:00 BP 103/73 11/06/17 10:00 Pulse Ox 96 11/06/17 10:00 - Exam Narrative exam: MSE: Appearance: calm, cooperative Behavior: regular eye contact Speech: regular rate and tone Mood: "depressed" withdrawn Affect: congruent to mood Thought Process: circumstantial Thought Content: denies HI's and VH's Motor Activity: ambulatory Cognition: A/O x 3 Insight: variable Judgment: variable Assessment and Plan Impression: Hx of Schizophrenia per the patient. Today the patient is calm and cooperative, but withdrawn during the assessment. Ammonia (62) is trending down. DDx: R/O Schizoaffective DO Recommendation/Plan: Continue 1013 with placement to inpatient psy services. The patient's home medications (Seroquel, Trazodone, Vistaril, and Valproic Acid ) were started by the ER MD. Discussed possible suicidality/priapism/medication induced ovidio with the patient reference Trazodone. The patient's ammonia level was discussed with his nurse. His ammonia level is slightly elevated.
[2017-11-06] MEDS: VISTARIL PO PRN (13:49)
[2017-11-06] MEDS: DESYREL PO SCH (22:55)
[2017-11-07] MEDS: KEPPRA PO SCH ×2 (10:30→22:25)
[2017-11-07] MEDS: VISTARIL PO PRN (11:44)
--- NOTE | 2017-11-07 14:44 | Progress Note ---
Subjective - Reason for Consult Consult date: 11/07/17 Reason for consult: Psychiatry Follow-up - Chief Complaint Chief complaint: "I don't feel well mentally" 47 year old WM seen for psychiatric evaluation in the ER. He presented with complaints of hearing voices telling him he is worthless and he shouldn't be around anymore. Today the patient is calm and cooperative, but withdrawn during the assessment. He stated that he do not have a reason to live. He stated that no one understand how he feels. He continue to endorse SI's, but would not confirm or deny a suicide plan. He denies HI's and VH's. He stated that the voices are still active. He denies any side effects of his medications. Mental Status Exam - Vital signs Last Vital Signs Temp 98.5 F 11/06/17 21:26 Pulse 67 11/06/17 21:26 Resp 19 11/06/17 21:26 BP 97/62 11/06/17 21:26 Pulse Ox 97 11/06/17 21:26 - Exam Narrative exam: MSE: Appearance: calm, cooperative Behavior: regular eye contact Speech: regular rate and tone Mood: withdrawn Affect: flat Thought Process: circumstantial Thought Content: denies HI's and VH's Motor Activity: ambulatory Cognition: A/O x 3 Insight: variable Judgment: variable Assessment and Plan Impression: Hx of Schizophrenia per the patient. Today the patient is calm and cooperative, but still withdrawn during the assessment. DDx: R/O Schizoaffective DO Recommendation/Plan: Continue 1013 with placement to inpatient psy services. The patient's home medications (Seroquel, Trazodone, Vistaril, and Valproic Acid ) were started by the ER MD. Discussed possible suicidality/priapism/medication induced ovidio with the patient reference Trazodone.
[2017-11-07] MEDS: DESYREL PO SCH (22:25)
[2017-11-08] MEDS: KEPPRA PO SCH ×2 (09:34→22:14)
[2017-11-08 10:59] LABS: Hematocrit 43.8 % (35.5-45.6); Hemoglobin 14.9 gm/dl (11.8-15.2); Mean Corpuscular HGB Conc 34 % (32-34); Mean Corpuscular Hemoglobin 32 pg (28-32); Mean Corpuscular Volume 95 fl (84-94); Platelet Count 245 K/mm3 (140-440); Red Blood Count 4.62 M/mm3 (3.65-5.03); Red Cell Distribution Width 13.7 % (13.2-15.2)
[2017-11-08 11:19] LABS: BUN/Creatinine Ratio 17; Blood Urea Nitrogen 12 mg/dL (9-20); Calcium 8.8 mg/dL (8.4-10.2); Hemolysis Index 14
--- NOTE | 2017-11-08 13:09 | Progress Note ---
Subjective - Reason for Consult Consult date: 11/08/17 Reason for consult: Psychiatric Follow-up Evaluation - Chief Complaint Chief complaint: "Not too good" Patient is a 47 year old WM seen for psychiatric evaluation in the ER. He presented with complaints of hearing voices telling him he is worthless and he shouldn't be around anymore. Today the patient is cooperative but anxious during the assessment. Patient continues to endorse auditory hallucinations and suicidal ideations with plan to step in front of a car. He reports, " I'm hearing a lot of voices. They're saying just do it." Patient endorses sleep fluctuations and appropriate appetite. He denies HI's and VH's. Patient is medication compliant. He denies any side effects of his medications. Mental Status Exam - Vital signs Last Vital Signs Temp 98.4 F 11/08/17 10:00 Pulse 77 11/08/17 10:00 Resp 18 11/08/17 10:00 BP 111/82 11/08/17 10:00 Pulse Ox 97 11/08/17 10:00 - Exam Narrative exam: Mental Status Exam General Appearance: Causally Dressed-hospital gown, poorly groomed Eye Contact: Intermittent Orientation: Alert and oriented x 4 (person, place, time, date, and situation) Attitude/Behavior: Cooperative Sensorium: Distracted Psychomotor & Musculoskeletal Activity: Ambulatory Mood: "not too good" Affect: Congruent with mood Speech/Language: Normal rate and tone Thought Processes: Circumstantial Thought Content: Impoverished, paranoid- " I feel like people are out to get me " Perception: + AH's - " Just end it" Concentration/Attention: Impaired Suicidal Ideations/Plan: + suicidal ideations with plan to step in front of a car Homicidal Ideations/Plan: Patient denies. Judgment: Poor Insight: Poor Assessment and Plan Impression: Hx of Schizophrenia per the patient. Today the patient is cooperative but anxious during the assessment. Patient endorses suicidal ideations with plan, auditory hallucinations, and paranoid delusions. UDS positive for marijuana and benzodiazepines. DDx: R/O Schizoaffective DO Recommendation/Plan: 1. Continue 1013 with placement to inpatient psy services. 2. Continue home medications (Seroquel, Trazodone, Vistaril, and Valproic Acid ) were started by the ER MD. Discussed possible suicidality/priapism/medication induced ovidio with the patient reference Trazodone. 3. Increase Trazdone 150mg po QHS insomnia 4. Will continue to monitor psychosis, mood, sleep, appetite, compliance, and side effects. 5. Will order STAT Depakote level.
[2017-11-08 16:54] LABS: Basophils % (Auto) 0.5 % (0.0-1.8); Eosinophils # (Auto) 0.3 K/mm3 (0.0-0.4); Eosinophils % (Auto) 3.9 % (0.0-4.3); Hematocrit 43.9 % (35.5-45.6); Hemoglobin 14.7 gm/dl (11.8-15.2); Lymphocytes # (Auto) 2.4 K/mm3 (1.2-5.4); Mean Corpuscular HGB Conc 33 % (32-34); Mean Corpuscular Hemoglobin 32 pg (28-32); Mean Corpuscular Volume 97 fl (84-94); Monocytes # (Auto) 0.6 K/mm3 (0.0-0.8); Monocytes % (Auto) 8.2 % (0.0-7.3); Platelet Count 233 K/mm3 (140-440); Red Blood Count 4.54 M/mm3 (3.65-5.03)
[2017-11-08 17:01] LABS: Bilirubin,Urine NEG (Negative); Blood,Urine NEG (Negative); Color,Urine Yellow (Yellow); Protein,Urine <15 mg/dL mg/dL (Negative); RBC,Urine < 1.0 /HPF (0.0-6.0); Urobilinogen,Urine < 2.0 mg/dL (<2.0); WBC,Urine < 1.0 /HPF (0.0-6.0)
[2017-11-08 17:11] LABS: Amphetamine Screen,Urine PRESUMPTIVE NEGATIVE; Benzodiazepines Screen,Urine PRESUMPTIVE NEGATIVE; Cannabinoid Screen,Urine PRESUMPTIVE NEGATIVE; Cocaine Screen,Urine PRESUMPTIVE NEGATIVE; Methadone Screen,Urine PRESUMPTIVE NEGATIVE; Opiate Screen,Urine PRESUMPTIVE NEGATIVE
[2017-11-08 17:33] LABS: BUN/Creatinine Ratio 17; Blood Urea Nitrogen 15 mg/dL (9-20); Hemolysis Index 22
[2017-11-08] MEDS: VISTARIL PO PRN (20:14)
[2017-11-08] MEDS: DESYREL PO SCH (22:14)
--- NOTE | 2017-11-09 07:47 | Progress Note ---
Subjective - Reason for Consult Consult date: 11/09/17 Reason for consult: Psychiatry Follow-up - Chief Complaint Chief complaint: "I don't know how I feel" Patient is a 47 year old WM seen for psychiatric evaluation in the ER. He presented with complaints of hearing voices telling him he is worthless and he shouldn't be around anymore. Today the patient is calm, cooperative, but sad and withdrawn during the assessment. He could not confirm or deny SI's. He stated that the voices are still active, but slept better last night. He denies HI's and VH's. He denies any side effects of his medications. Mental Status Exam - Vital signs Last Vital Signs Temp 98.3 F 11/08/17 20:00 Pulse 84 11/08/17 20:00 Resp 18 11/08/17 20:00 BP 100/68 11/08/17 20:00 Pulse Ox 97 11/08/17 20:00 - Exam Narrative exam: MSE: Appearance: calm, cooperative Behavior: regular eye contact Speech: regular rate and tone Mood: withdrawn, sad Affect: flat Thought Process: circumstantial Thought Content: denies HI's and VH's Motor Activity: ambulatory Cognition: A/O x 3 Insight: variable Judgment: variable Assessment and Plan Impression: Unspecified Mood DO. Hx of Schizophrenia per the patient. Today the patient is calm and cooperative, but sad and withdrawn during the assessment. DDx: R/O Schizoaffective DO Recommendation/Plan: Continue 1013 with placement to inpatient psy services. The patient's home medications (Seroquel, Trazodone, Vistaril, and Valproic Acid ) were started by the ER MD. Discussed possible suicidality/priapism/medication induced ovidio with the patient reference Trazodone.
[2017-11-09] MEDS: KEPPRA PO SCH ×2 (10:40→22:22)
[2017-11-09] MEDS ORDERED: ZOFRAN ODT PO ONE ×2 (16:53→19:03)
[2017-11-09] MEDS ORDERED: TYLENOL PO ONE (16:55)
[2017-11-09] MEDS: DESYREL PO SCH (22:23)
[2017-11-10 08:07] VITALS: BP 131/82
== END 2017-11-10 08:00 ==
LOC: ED 07:17 → EEVIPCON 07:17 → ED 11-10 08:00
DX: R45.851 Suicidal ideations (principal); F31.9 Bipolar disorder, unspecified; F20.9 Schizophrenia, unspecified; F12.10 Cannabis abuse, uncomplicated; F17.200 Nicotine dependence, unspecified, uncomplicated; F32.9 Major depressive disorder, single episode, unspecified; Z88.8 Allergy status to other drugs, medicaments and biological substances
CPT/HCPCS: 36415; 80048; 80074; 80164; 80307; 81001; 82140; 82150; 82550; 83690; 85025; 85027; 99285; G0480; J3246; 80320; Q0162; Q0177

== ENCOUNTER 2018-03-20 14:46 | Emergency (ER) | payer MEDICAID | END 2018-03-20 15:35 | disposition left against medical advice (07) | LOC: ED 14:46 ==

== ENCOUNTER 2018-04-23 04:12 | Emergency (ER) | payer MEDICAID ==
[2018-04-23 04:42] LABS: Basophils % (Auto) 0.5 % (0.0-1.8); Eosinophils # (Auto) 0.1 K/mm3 (0.0-0.4); Eosinophils % (Auto) 0.9 % (0.0-4.3); Hematocrit 44.5 % (35.5-45.6); Hemoglobin 15.5 gm/dl (11.8-15.2); Lymphocytes # (Auto) 1.5 K/mm3 (1.2-5.4); Lymphocytes % (Auto) 20.7 % (13.4-35.0); Mean Corpuscular HGB Conc 35 % (32-34); Mean Corpuscular Volume 95 fl (84-94); Monocytes # (Auto) 0.3 K/mm3 (0.0-0.8); Monocytes % (Auto) 4.4 % (0.0-7.3); Platelet Count 216 K/mm3 (140-440); Red Blood Count 4.67 M/mm3 (3.65-5.03); Red Cell Distribution Width 13.6 % (13.2-15.2)
[2018-04-23] MEDS ORDERED: APRESOLINE ONE (04:44)
[2018-04-23 05:05] LABS: BUN/Creatinine Ratio 8; Blood Urea Nitrogen 7 mg/dL (9-20); Calcium 8.8 mg/dL (8.4-10.2); Hemolysis Index 9
--- NOTE | 2018-04-23 06:22 | Emergency Department Report ---
HPI - General Chief Complaint: Psych Time Seen by Provider: 04/23/18 06:03 - HPI HPI: 48-year-old white male with a past medical history schizophrenia and bipolar disorder presents to the Hospital complaining of auditory hallucinations for 3 days worse today. Patient lives in a [facility] and the police were called due to these symptoms. He takes Depakote, Seroquel, clonazepam, trazodone for his psychiatric issues. He denies any specific suicidal plans, but stated he would take his life if he gets the opportunity. Patient is having command hallu cinations with homicidal ideation. Denies suicidal ideation. He denies any physical complaints. ED Past Medical Hx - Past Medical History Previous Medical History?: Yes Hx Seizures: Yes Hx Psychiatric Treatment: Yes (Bipolar, Schizophrenia, Depression) Additional medical history: Pt unable to communicate to answer questions during triage - Surgical History Past Surgical History?: Yes Hx Appendectomy: Yes - Social History Smoking Status: Current Every Day Smoker Substance Use Type: Marijuana - Medications Home Medications: Home Medications Medication Instructions Recorded Confirmed Last Taken Type QUEtiapine [SEROquel] 300 mg PO HS 10/03/17 11/03/17 10/27/17 History levETIRAcetam [Keppra] 500 mg PO BID #60 tablet 10/04/17 11/03/17 10/27/17 Rx Quetiapine Fumarate [Seroquel] 300 mg PO QAM #10 tablet 11/02/17 11/03/17 Unknown Rx Valproic Acid [Depakene] 500 mg PO BID #40 capsule 11/02/17 11/03/17 Unknown Rx hydrOXYzine PAMOATE [Vistaril] 25 mg PO Q4HR PRN #30 capsule 11/02/17 11/03/17 Unknown Rx traZODone [Desyrel] 100 mg PO QHS #10 tablet 11/02/17 11/03/17 Unknown Rx Ondansetron [Zofran Odt] 4 mg PO Q6HR PRN #15 tab.rapdis 12/07/17 Unknown Rx traMADol [Ultram] 50 mg PO Q4HR PRN #10 tablet 12/07/17 Unknown Rx Esomeprazole Magnesium [Nexium] 40 mg PO 20 #20 capsule. 03/28/18 Unknown Rx Ondansetron [Zofran Odt] 4 mg PO Q8HR PRN #15 tab.rapdis 03/28/18 Unknown Rx ED Review of Systems ROS: Stated complaint: MH Other details as noted in HPI Constitutional: denies: chills, fever Eyes: denies: eye pain, eye discharge, vision change ENT: denies: ear pain, throat pain Respiratory: denies: cough, shortness of breath, wheezing Cardiovascular: denies: chest pain, palpitations Endocrine: no symptoms reported Gastrointestinal: denies: abdominal pain, nausea, diarrhea Genitourinary: denies: urgency, dysuria Musculoskeletal: denies: back pain, joint swelling, arthralgia Skin: denies: rash, lesions Neurological: denies: headache, weakness, paresthesias Psychiatric: anxiety, depression, auditory hallucinations, visual hallucinations, suicidal thoughts Hematological/Lymphatic: denies: easy bleeding, easy bruising Physical Exam - Physical Exam Vital Signs: Vital Signs 04/23/18 04/23/18 04:13 04:28 Temperature 97.7 F Pulse Rate 114 H Respiratory 18 18 Rate Blood Pressure 136/80 O2 Sat by Pulse 96 Oximetry Physical Exam: - General Limitations: No Limitations General appearance: alert, in mild distress - Head Head exam: Present: atraumatic, normocephalic - Eye Eye exam: Present: normal appearance - ENT ENT exam: Present: mucous membranes moist - Neck Neck exam: Present: normal inspection - Respiratory Respiratory exam: Present: normal lung sounds bilaterally. Absent: respiratory distress - Cardiovascular Cardiovascular Exam: Present: regular rate, normal rhythm. Absent: systolic murmur, diastolic murmur, rubs, gallop - GI/Abdominal GI/Abdominal exam: Present: soft, normal bowel sounds - Extremities Exam Extremities exam: Present: normal inspection - Back Exam Back exam: Present: normal inspection - Neurological Exam Neurological exam: Present: alert, oriented X3 - Psychiatric Psychiatric exam: Present: Depressed him a SI - Skin Skin exam: Present: warm, dry, intact, normal color. Absent: rash ED Course Vital Signs 04/23/18 04/23/18 04:13 04:28 Temperature 97.7 F Pulse Rate 114 H Respiratory 18 18 Rate Blood Pressure 136/80 O2 Sat by Pulse 96 Oximetry - Reevaluation(s) Reevaluation #1: 04/23/18 06:21 Mental have consulted Reevaluation #2: 04/23/18 06:21 Medically clear for psychiatric treatment ED Medical Decision Making - Lab Data Result diagrams: 04/23/18 04:19 04/23/18 04:19 Critical care attestation.: If time is entered above; I have spent that time in minutes in the direct care of this critically ill patient, excluding procedure time. ED Disposition Clinical Impression: Suicidal ideations, Acute psychosis Disposition: [id number] PSY HOSP/PSY UNIT Is pt being admited?: No Does the pt Need Aspirin: No Condition: Stable Referrals: PRIMARY CARE, [Primary Care Provider] - 3-5 Days
[2018-04-23] MEDS ORDERED: ZOFRAN ODT PO ONE ×2 (06:42→08:57)
[2018-04-23 07:25] LABS: Bilirubin,Urine NEG (Negative); Blood,Urine NEG (Negative); Color,Urine Yellow (Yellow); Mucus,Urine FEW /HPF; Protein,Urine <15 mg/dL mg/dL (Negative); Urobilinogen,Urine < 2.0 mg/dL (<2.0)
[2018-04-23 07:34] LABS: Amphetamine Screen,Urine PRESUMPTIVE NEGATIVE; Benzodiazepines Screen,Urine PRESUMPTIVE NEGATIVE; Cocaine Screen,Urine PRESUMPTIVE NEGATIVE; Methadone Screen,Urine PRESUMPTIVE NEGATIVE; Opiate Screen,Urine PRESUMPTIVE NEGATIVE
[2018-04-23 07:46] LABS: Cannabinoid Screen,Urine PRESUMPTIVE POSITIVE
[2018-04-23] MEDS ORDERED: GEODON IM ONE (08:57)
[2018-04-23] MEDS ORDERED: WATER FOR INJ (PF) ONE (09:10)
--- NOTE | 2018-04-23 12:09 | Consultation ---
History of Present Illness - Reason for Consult Consult date: 04/23/18 Reason for consult: Mental Health Evaluation Requesting physician: MARICRUZ JONES - Chief Complaint Chief complaint: "I hate the voices" - History of Present Psychiatric Illness 48-year-old white male who presented to the ER for AH's. Today the patient is paranoid during the assessment. He was observed holding his hand close to his ears. He stated, "The voices are awful." He stated that the voices have been overwhelming for him for several days. He stated that the voices are telling him to kill himself. He paused several times before he would answer questions, possibly responding to some type of stimuli. Throughout the interview, the patient had to be redirected to keep him on topic. At this time, the patient is a poor historian. Medications and Allergies Allergies Allergy/AdvReac Type Severity Reaction Status Date / Time risperidone [From Risperdal] Allergy Angioedema Verified 05/14/17 08:42 haloperidol AdvReac Angioedema Verified 05/14/17 08:42 Home Medications Medication Instructions Recorded Confirmed Last Taken Type QUEtiapine [SEROquel] 300 mg PO HS 10/03/17 11/03/17 10/27/17 History levETIRAcetam [Keppra] 500 mg PO BID #60 tablet 10/04/17 11/03/17 10/27/17 Rx Quetiapine Fumarate [Seroquel] 300 mg PO QAM #10 tablet 11/02/17 11/03/17 Unknown Rx Valproic Acid [Depakene] 500 mg PO BID #40 capsule 11/02/17 11/03/17 Unknown Rx hydrOXYzine PAMOATE [Vistaril] 25 mg PO Q4HR PRN #30 capsule 11/02/17 11/03/17 Unknown Rx traZODone [Desyrel] 100 mg PO QHS #10 tablet 11/02/17 11/03/17 Unknown Rx Ondansetron [Zofran Odt] 4 mg PO Q6HR PRN #15 tab.rapdis 12/07/17 Unknown Rx traMADol [Ultram] 50 mg PO Q4HR PRN #10 tablet 12/07/17 Unknown Rx Esomeprazole Magnesium [Nexium] 40 mg PO 20 #20 capsule. 03/28/18 Unknown Rx Ondansetron [Zofran Odt] 4 mg PO Q8HR PRN #15 tab.rapdis 03/28/18 Unknown Rx Past psychiatric history - Past Medical History Past Medical History: other ("Right Flank Pain in the past") Past Surgical History: appendectomy - past Psychiatric treatment and history psychiatric treatment history: Several inpatient psy setting in the past. Denies a fam psy hx. - Social History Social history: other (Res[facility] at a [facility]) Mental Status Exam - Vital signs Last Vital Signs Temp 97.4 F L 04/23/18 07:17 Pulse 87 04/23/18 07:17 Resp 18 04/23/18 08:00 BP 116/78 04/23/18 07:17 Pulse Ox 98 04/23/18 08:00 - Exam Narrative exam: MSE: Appearance: in hospital attire Behavior: regular eye contact Speech: regular rate and loud tone Mood: "depressed" Affect: congruent to mood Thought Process: circumstantial Thought Content: denies HI's and VH's, paranoia Motor Activity: sitting up in the bed Cognition: A/O x3 Insight: poor Judgment: poor Results Result Diagrams: 04/23/18 04:19 04/23/18 04:19 Abnormal lab results 04/23/18 04/23/18 04/23/18 Range/Units 04:19 04:19 04:19 Hgb (11.8-15.2) gm/dl MCV (84-94) fl MCH (28-32) pg MCHC (32-34) % Seg Neutrophils % (40.0-70.0) % Carbon Dioxide 21 L (22-30) mmol/L BUN 7 L (9-20) mg/dL Glucose 125 H (75-100) mg/dL Salicylates < 0.3 L (2.8-20.0) mg/dL Acetaminophen < 5.0 L (10.0-30.0) ug/mL 04/23/18 Range/Units 04:19 Hgb 15.5 H (11.8-15.2) gm/dl MCV 95 H (84-94) fl MCH 33 H (28-32) pg MCHC 35 H (32-34) % Seg Neutrophils % 73.5 H (40.0-70.0) % Carbon Dioxide (22-30) mmol/L BUN (9-20) mg/dL Glucose (75-100) mg/dL Salicylates (2.8-20.0) mg/dL Acetaminophen (10.0-30.0) ug/mL All other labs normal. Assessment and Plan Assessment and plan: Impression: Unspecified Mood DO with psy features. Cannabis Use DO. Today the patient is paranoid during the assessment. DDx: MDD with psychosis, R/O Bipolar DO with psychosis, R/O Substance Induced Mood/Psychotic DO Recommendation/Plan: Continue 1013. Dispo: The patient was accepted at [facility] for inpatient psy services. Will staff with Dr Brandi Romano.
[2018-04-23 12:19] VITALS: BP 124/98
== END 2018-04-23 12:58 ==
LOC: ED 04:12
DX: F39 Unspecified mood [affective] disorder (principal); F31.9 Bipolar disorder, unspecified; F20.9 Schizophrenia, unspecified; F17.200 Nicotine dependence, unspecified, uncomplicated; F12.10 Cannabis abuse, uncomplicated; Z90.49 Acquired absence of other specified parts of digestive tract; Z79.899 Other long term (current) drug therapy; Z88.4 Allergy status to anesthetic agent
CPT/HCPCS: 36415; 80048; 80307; 81001; 85025; 96372; 99285; G0480; J3486; 80320; J0360; Q0162

== ENCOUNTER 2018-12-14 17:23 | Emergency (ER) | payer MEDICAID ==
[2018-12-14] MEDS ORDERED: ZIPRASIDONE 20 MG CAP PO ONE (20:12)
[2018-12-14 20:46] LABS: Basophils % (Auto) 0.6 % (0.0-1.8); Eosinophils # (Auto) 0.4 K/mm3 (0.0-0.4); Eosinophils % (Auto) 5.5 % (0.0-4.3); Hematocrit 41.9 % (35.5-45.6); Hemoglobin 14.3 gm/dl (11.8-15.2); Lymphocytes # (Auto) 2.8 K/mm3 (1.2-5.4); Lymphocytes % (Auto) 41.2 % (13.4-35.0); Mean Corpuscular HGB Conc 34 % (32-34); Mean Corpuscular Volume 96 fl (84-94); Monocytes # (Auto) 0.4 K/mm3 (0.0-0.8); Monocytes % (Auto) 5.9 % (0.0-7.3); Platelet Count 230 K/mm3 (140-440); Red Blood Count 4.37 M/mm3 (3.65-5.03); Red Cell Distribution Width 12.9 % (13.2-15.2)
--- NOTE | 2018-12-14 20:58 | Emergency Department Report ---
ED General Adult HPI - General Chief complaint: Psych Stated complaint: MELINDA EVDENNIS Time Seen by Provider: 12/14/18 18:49 Source: patient Mode of arrival: Ambulatory Limitations: No Limitations - History of Present Illness Initial comments: She states that his hearing voices telling him to harm himself. Patient states his this will start of a left couple days with a plan to cut his wrists. Patient request Lili to help with his voices. -: unknown Severity scale (0 -10): 0 Improves with: none Worsens with: none Associated Symptoms: denies other symptoms Treatments Prior to Arrival: none - Related Data Home Medications Medication Instructions Recorded Confirmed Last Taken Benztropine Mesylate 0.5 mg PO BID 12/14/18 12/14/[address] [Depakote Dr] 500 mg PO BID 12/14/18 12/14/18 Unknown Quetiapine Fumarate [SEROquel] 400 mg PO QHS 12/14/18 12/14/18 Unknown clonazePAM [Klonopin] 1 mg PO QHS 12/14/18 12/14/18 Unknown Allergies Allergy/AdvReac Type Severity Reaction Status Date / Time risperidone [From Risperdal] Allergy Angioedema Verified 05/14/17 08:42 haloperidol AdvReac Angioedema Verified 05/14/17 08:42 ED Review of Systems ROS: Stated complaint: MELINDA EVAL Other details as noted in HPI Comment: All other systems reviewed and negative Constitutional: denies: chills, fever Eyes: denies: eye pain, eye discharge, vision change ENT: denies: ear pain, throat pain Respiratory: denies: cough, shortness of breath, wheezing Cardiovascular: denies: chest pain, palpitations Endocrine: no symptoms reported Gastrointestinal: denies: abdominal pain, nausea, diarrhea Genitourinary: denies: urgency, dysuria Musculoskeletal: denies: back pain, joint swelling, arthralgia Skin: denies: rash, lesions Neurological: denies: headache, weakness, paresthesias Psychiatric: suicidal thoughts. denies: anxiety, depression Hematological/Lymphatic: denies: easy bleeding, easy bruising ED Past Medical Hx - Past Medical History Previous Medical History?: Yes Hx Seizures: Yes Hx Psychiatric Treatment: Yes (Bipolar, Schizophrenia, Depression) Additional medical history: Pt unable to communicate to answer questions during triage - Surgical History Hx Appendectomy: Yes - Social History Smoking Status: Current Every Day Smoker Substance Use Type: Marijuana - Medications Home Medications: Home Medications Medication Instructions Recorded Confirmed Last Taken Type Benztropine Mesylate 0.5 mg PO BID 12/14/18 12/14/[address] [Depakote Dr] 500 mg PO BID 12/14/18 12/14/18 Unknown History Quetiapine Fumarate [SEROquel] 400 mg PO QHS 12/14/18 12/14/18 Unknown History clonazePAM [Klonopin] 1 mg PO QHS 12/14/18 12/14/18 Unknown History ED Physical Exam - General Limitations: No Limitations General appearance: alert, in no apparent distress - Head Head exam: Present: atraumatic, normocephalic - Eye Eye exam: Present: normal appearance, PERRL, EOMI - ENT ENT exam: Present: mucous membranes moist - Neck Neck exam: Present: normal inspection - Respiratory Respiratory exam: Present: normal lung sounds bilaterally. Absent: respiratory distress - Cardiovascular Cardiovascular Exam: Present: regular rate, normal rhythm. Absent: systolic murmur, diastolic murmur, rubs, gallop - GI/Abdominal GI/Abdominal exam: Present: soft, normal bowel sounds. Absent: distended, tenderness - Rectal Rectal exam: Present: deferred - Extremities Exam Extremities exam: Present: normal inspection - Back Exam Back exam: Present: normal inspection - Neurological Exam Neurological exam: Present: alert, oriented X3, CN II-XII intact. Absent: motor sensory deficit - Psychiatric Psychiatric exam: Present: normal affect, normal mood, suicidal ideation - Skin Skin exam: Present: warm, dry, intact, normal color. Absent: rash ED Course Vital Signs 12/14/18 12/14/18 18:41 20:05 Temperature 98.5 F 98.5 F Pulse Rate 80 67 Respiratory 18 18 Rate Blood Pressure 111/71 94/64 [Left] O2 Sat by Pulse 96 96 Oximetry ED Medical Decision Making - Lab Data Result diagrams: 12/14/18 20:32 12/14/18 20:32 Lab Results 12/14/18 12/14/18 12/14/18 Range/Units 20:32 20:32 20:32 WBC 6.7 (4.5-11.0) K/mm3 RBC 4.37 (3.65-5.03) M/mm3 Hgb 14.3 (11.8-15.2) gm/dl Hct 41.9 (35.5-45.6) % MCV 96 H (84-94) fl MCH 33 H (28-32) pg MCHC 34 (32-34) % RDW 12.9 L (13.2-15.2) % Plt Count 230 (140-440) K/mm3 Lymph % (Auto) 41.2 H (13.4-35.0) % Burke % (Auto) 5.9 (0.0-7.3) % Eos % (Auto) 5.5 H (0.0-4.3) % Baso % (Auto) 0.6 (0.0-1.8) % Lymph # 2.8 (1.2-5.4) K/mm3 Burke # 0.4 (0.0-0.8) K/mm3 Eos # 0.4 (0.0-0.4) K/mm3 Baso # 0.0 (0.0-0.1) K/mm3 Seg Neutrophils % 46.8 (40.0-70.0) % Seg Neutrophils # 3.1 (1.8-7.7) K/mm3 Sodium 140 (137-145) mmol/L Potassium 3.5 L (3.6-5.0) mmol/L Chloride 106.9 (98-107) mmol/L Carbon Dioxide 22 (22-30) mmol/L Anion Gap 15 mmol/L BUN 7 L (9-20) mg/dL Creatinine 0.9 (0.8-1.5) mg/dL Estimated GFR > 60 ml/min BUN/Creatinine Ratio 8 % Glucose 128 H (75-100) mg/dL Calcium 8.6 (8.4-10.2) mg/dL Total Bilirubin < 0.20 (0.1-1.2) mg/dL AST 12 (5-40) units/L ALT 14 (7-56) units/L Alkaline Phosphatase 75 (35-129) units/L Total Protein 6.7 (6.3-8.2) g/dL Albumin 3.8 L (3.9-5) g/dL Albumin/Globulin Ratio 1.3 % Salicylates < 0.3 L (2.8-20.0) mg/dL Acetaminophen (10.0-30.0) ug/mL Plasma/Serum Alcohol (0-0.07) % 12/14/18 12/14/18 Range/Units 20:32 20:32 WBC (4.5-11.0) K/mm3 RBC (3.65-5.03) M/mm3 Hgb (11.8-15.2) gm/dl Hct (35.5-45.6) % MCV (84-94) fl MCH (28-32) pg MCHC (32-34) % RDW (13.2-15.2) % Plt Count (140-440) K/mm3 Lymph % (Auto) (13.4-35.0) % Burke % (Auto) (0.0-7.3) % Eos % (Auto) (0.0-4.3) % Baso % (Auto) (0.0-1.8) % Lymph # (1.2-5.4) K/mm3 Burke # (0.0-0.8) K/mm3 Eos # (0.0-0.4) K/mm3 Baso # (0.0-0.1) K/mm3 Seg Neutrophils % (40.0-70.0) % Seg Neutrophils # (1.8-7.7) K/mm3 Sodium (137-145) mmol/L Potassium (3.6-5.0) mmol/L Chloride (98-107) mmol/L Carbon Dioxide (22-30) mmol/L Anion Gap mmol/L BUN (9-20) mg/dL Creatinine (0.8-1.5) mg/dL Estimated GFR ml/min BUN/Creatinine Ratio % Glucose (75-100) mg/dL Calcium (8.4-10.2) mg/dL Total Bilirubin (0.1-1.2) mg/dL AST (5-40) units/L ALT (7-56) units/L Alkaline Phosphatase (35-129) units/L Total Protein (6.3-8.2) g/dL Albumin (3.9-5) g/dL Albumin/Globulin Ratio % Salicylates (2.8-20.0) mg/dL Acetaminophen < 5.0 L (10.0-30.0) ug/mL Plasma/Serum Alcohol < 0.01 (0-0.07) % - Medical Decision Making medically cleared 1013 applied Critical care attestation.: If time is entered above; I have spent that time in minutes in the direct care of this critically ill patient, excluding procedure time. ED Disposition Clinical Impression: Suicidal ideations Disposition: DC/TX-65 PSY HOSP/PSY UNIT Is pt being admited?: No Does the pt Need Aspirin: No Condition: Stable
[2018-12-14 21:08] LABS: Alanine Aminotransferase 14 units/L (7-56); Albumin 3.8 g/dL (3.9-5); BUN/Creatinine Ratio 8; Blood Urea Nitrogen 7 mg/dL (9-20); Calcium 8.6 mg/dL (8.4-10.2); Hemolysis Index 3
[2018-12-15 04:05] VITALS: BP 92/56
== END 2018-12-15 06:10 ==
LOC: ED 17:23
DX: F31.9 Bipolar disorder, unspecified (principal); F20.9 Schizophrenia, unspecified; F12.10 Cannabis abuse, uncomplicated; F17.200 Nicotine dependence, unspecified, uncomplicated; Z79.899 Other long term (current) drug therapy; Z88.8 Allergy status to other drugs, medicaments and biological substances
CPT/HCPCS: 36415; 80053; 80320; 85025; G0480

== ENCOUNTER 2019-01-01 17:02 | Emergency (ER) | payer MEDICAID ==
--- NOTE | 2019-01-01 18:46 | Emergency Department Report ---
HPI - General Chief Complaint: Psych Time Seen by Provider: 01/01/19 18:28 - HPI HPI: 48-year-old male presents to the emergency department with the complaint of a 2 day history of both suicidal and homicidal ideations. He has a plan of cutting his wrists. He says "I just don't want to be here anymore, I'm sick." He says he is hearing voices that are "telling me that I am no good and just go ahead and do it" and admits that they are essentially telling him to both harm himself and others. He also states that he is having visual halluci nations in which she is seeing shadows in the room. He mentioned something about a headache through triage but to me he says "I think it is just the voices in my head." He has a past mental history of bipolar disorder, schizophrenia, depression, seizures. He takes Depakote, Seroquel, Klonopin and benztropine and says he takes compliantly. He is a tobacco smoker but denies any illicit drug use. His psychiatrist is Dr. Emanuel Perez. ED Past Medical Hx - Past Medical History Previous Medical History?: Yes Hx Seizures: Yes Hx Psychiatric Treatment: Yes (Bipolar, Schizophrenia, Depression) Additional medical history: Pt unable to communicate to answer questions during triage - Surgical History Past Surgical History?: No Hx Appendectomy: Yes - Social History Smoking Status: Current Every Day Smoker Substance Use Type: None - Medications Home Medications: Home Medications Medication Instructions Recorded Confirmed Last Taken Type Divalproex Dr [Depakote Dr] 1,500 mg PO QHS 12/14/18 01/01/19 Unknown History clonazePAM [Klonopin] 3 mg PO QHS 12/14/18 01/01/19 Unknown History levETIRAcetam [Keppra TAB] 1,500 mg PO QDAY 01/01/19 01/01/19 Unknown History ED Review of Systems ROS: Stated complaint: SI/HEADACHE Other details as noted in HPI Comment: All other systems reviewed and negative Constitutional: denies: chills, fever Eyes: denies: eye pain, vision change ENT: denies: ear pain, throat pain Respiratory: denies: cough, shortness of breath Cardiovascular: denies: chest pain, palpitations Gastrointestinal: denies: abdominal pain, vomiting Musculoskeletal: denies: back pain, arthralgia Neurological: denies: weakness, numbness Psychiatric: depression, auditory hallucinations, visual hallucinations, homicidal thoughts, suicidal thoughts Physical Exam - Physical Exam Vital Signs: Vital Signs 01/01/19 18:33 Temperature 98.3 F Pulse Rate 76 Respiratory 16 Rate Blood Pressure 87/58 [Right] O2 Sat by Pulse 95 Oximetry Physical Exam: GENERAL: The patient is well-developed well-nourished. HENT: Normocephalic. Atraumatic. Patient has moist mucous membranes. EYES: Extraocular motions are intact. NECK: Supple. Trachea is midline. CHEST/LUNGS: Clear to auscultation. There is no respiratory distress noted. HEART/CARDIOVASCULAR: Regular. There is no tachycardia. There is no murmur. ABDOMEN: Abdomen is soft, nontender. Patient has normal bowel sounds. There is no abdominal distention. SKIN: Skin is warm and dry. NEURO: The patient is awake, alert, and oriented. The patient is cooperative. The patient has no focal neurologic deficits. Normal speech. MUSCULOSKELETAL: There is no tenderness or deformity. There is no evidence of acute injury. ED Course Vital Signs 01/01/19 18:33 Temperature 98.3 F Pulse Rate 76 Respiratory 16 Rate Blood Pressure 87/58 [Right] O2 Sat by Pulse 95 Oximetry ED Medical Decision Making - Lab Data Result diagrams: 01/01/19 19:07 01/01/19 19:07 - Medical Decision Making His patient presents to the emergency department with both auditory and visual hallucinations as well as some command hallucinations causing suicidal and homicidal ideations. For this reason the patient has been made a 1013. Labs have been unremarkable. Vital signs stable throughout his ED course. The patient is medically cleared for psychiatric placement. - Differential Diagnosis bipolar disorder, schizophrenia, schizoaffective, substance abuse Critical Care Time: No Critical care attestation.: If time is entered above; I have spent that time in minutes in the direct care of this critically ill patient, excluding procedure time. ED Disposition Clinical Impression: Homicidal ideation, Suicidal ideation, Hallucinations Disposition: DC/TX-65 PSY HOSP/PSY UNIT Is pt being admited?: No Condition: Stable Referrals: PRIMARY MD ACACIA [Primary Care Provider] - 3-5 Days Time of Disposition: 01:00
[2019-01-01] MEDS ORDERED: SODIUM CHLORIDE 0.9% 1000 ML 1,000 ML IV ONE (19:15)
[2019-01-01 19:34] LABS: Basophils % (Auto) 0.8 % (0.0-1.8); Eosinophils # (Auto) 0.4 K/mm3 (0.0-0.4); Eosinophils % (Auto) 7.1 % (0.0-4.3); Hematocrit 42.6 % (35.5-45.6); Hemoglobin 14.9 gm/dl (11.8-15.2); Lymphocytes # (Auto) 2.5 K/mm3 (1.2-5.4); Lymphocytes % (Auto) 41.6 % (13.4-35.0); Mean Corpuscular HGB Conc 35 % (32-34); Mean Corpuscular Volume 95 fl (84-94); Monocytes # (Auto) 0.5 K/mm3 (0.0-0.8); Monocytes % (Auto) 9.1 % (0.0-7.3); Platelet Count 191 K/mm3 (140-440); Red Blood Count 4.47 M/mm3 (3.65-5.03)
[2019-01-01 19:49] LABS: BUN/Creatinine Ratio 13; Blood Urea Nitrogen 9 mg/dL (9-20); Calcium 8.6 mg/dL (8.4-10.2); Hemolysis Index 57
[2019-01-01 20:21] LABS: Bilirubin,Urine NEG (Negative); Blood,Urine NEG (Negative); Color,Urine Yellow (Yellow); Protein,Urine <15 mg/dL mg/dL (Negative); Urobilinogen,Urine < 2.0 mg/dL (<2.0); WBC,Urine < 1.0 /HPF (0.0-6.0)
[2019-01-01 20:35] LABS: Amphetamine Screen,Urine PRESUMPTIVE NEGATIVE; Benzodiazepines Screen,Urine PRESUMPTIVE NEGATIVE; Cannabinoid Screen,Urine PRESUMPTIVE NEGATIVE; Cocaine Screen,Urine PRESUMPTIVE NEGATIVE; Methadone Screen,Urine PRESUMPTIVE NEGATIVE; Opiate Screen,Urine PRESUMPTIVE NEGATIVE
[2019-01-02] MEDS ORDERED: SODIUM CHLORIDE 0.9% 1000 ML 1,000 ML IV ONE (03:13)
[2019-01-02 09:36] LABS: Alanine Aminotransferase 6 units/L (7-56)
--- NOTE | 2019-01-02 12:23 | Consultation ---
History of Present Illness - Reason for Consult Consult date: 01/02/19 Reason for consult: Mental Health Evaluation Requesting physician: KANIKA ANDERSON - Chief Complaint Chief complaint: "I don't know what to do with myself" - History of Present Psychiatric Illness 48 y.o. white male who presented to the ER for SI's and AH's. This patient is known to me. Today the patient was calm during the assessment. He stated that he is experiencing AH's for several days. He stated that the voices are telling him to cut his wrist. He stated,"i'm not sure of i want to kill myself." He stated that he haven't had his Seroquel in days. He stated that he is seen by Dr Perez for outpatient psy services. He denies HI's and VH's. He denies erratic sleep and a poor appetite. He denies recreational drug use and alcohol consumption (etoh). Medications and Allergies Allergies Allergy/AdvReac Type Severity Reaction Status Date / Time risperidone [From Risperdal] Allergy Angioedema Verified 05/14/17 08:42 haloperidol AdvReac Angioedema Verified 05/14/17 08:42 Home Medications Medication Instructions Recorded Confirmed Last Taken Type Divalproex Dr [Anibal Alaniz] 1,500 mg PO QHS 12/14/18 01/01/19 Unknown History clonazePAM [Klonopin] 3 mg PO QHS 12/14/18 01/01/19 Unknown History levETIRAcetam [Keppra TAB] 1,500 mg PO QDAY 01/01/19 01/01/19 Unknown History Past psychiatric history - Past Medical History Past Medical History: No medical history Past Surgical History: No surgical history - past Psychiatric treatment and history psychiatric treatment history: Inpatient psy settings in the past. Denies a fam psy hx. - Social History Social history: other (Reside at a [place] [facility]) Mental Status Exam - Vital signs Last Vital Signs Temp 97.9 F 01/02/19 01:00 Pulse 102 H 01/02/19 12:09 Resp 18 01/02/19 12:09 BP 143/108 01/02/19 12:09 Pulse Ox 83 L 01/02/19 12:09 - Exam Narrative exam: MSE: Appearance: calm, cooperative Behavior: poor eye contact Speech: regular rate and tone Mood: "not well" Affect: flat Thought Process: circumstantial Thought Content: denies HI's and VH's Motor Activity: lying in bed Cognition: A/O x 3 Insight: variable Judgment: poor Results Result Diagrams: 01/01/19 19:07 01/01/19 19:07 Abnormal lab results 01/01/19 01/01/19 01/01/19 Range/Units 18:39 19:07 19:07 MCV 95 H (84-94) fl MCH 33 H (28-32) pg MCHC 35 H (32-34) % Lymph % (Auto) 41.6 H (13.4-35.0) % Bucks % (Auto) 9.1 H (0.0-7.3) % Eos % (Auto) 7.1 H (0.0-4.3) % Chloride 108.5 H (98-107) mmol/L Carbon Dioxide 20 L (22-30) mmol/L Creatinine 0.7 L (0.8-1.5) mg/dL ALT (7-56) units/L Urine pH 8.0 H (5.0-7.0) Valproic Acid (50-100) ug/mL 01/02/19 01/02/19 01/02/19 Range/Units 09:00 09:00 10:32 MCV (84-94) fl MCH (28-32) pg MCHC (32-34) % Lymph % (Auto) (13.4-35.0) % Bucks % (Auto) (0.0-7.3) % Eos % (Auto) (0.0-4.3) % Chloride (98-107) mmol/L Carbon Dioxide (22-30) mmol/L Creatinine (0.8-1.5) mg/dL ALT 6 L (7-56) units/L Urine pH (5.0-7.0) Valproic Acid < 2.8 L < 2.8 L (50-100) ug/mL All other labs normal. Assessment and Plan Assessment and plan: Impression: Unspecified Mood with psy features. Today the patient was calm during the assessment. UDS was negative: DDx: MDD with psychosis Recommendation/Plan: Continue 1013 and start Seroquel 200 mg PO HS for psychosis/mood. Discussed possible metabolic side effects of Seroquel with the patient, he verbalized understanding. Line of Sight for safety ordered. Dispo: The patient was referred to inpatient psy services. Will staff with Dr Cira Romano.
[2019-01-02] MEDS ORDERED: clonazePAM 0.5 MG TAB PO ONE (12:26)
[2019-01-02] MEDS ORDERED: DIVALPROEX ER 500 MG TAB PO ONE (13:25)
[2019-01-02 15:24] VITALS: BP 111/74
== END 2019-01-02 17:15 ==
LOC: EEVIPCON 17:02 → ED 17:02
DX: F39 Unspecified mood [affective] disorder (principal); F31.9 Bipolar disorder, unspecified; F20.9 Schizophrenia, unspecified; F17.200 Nicotine dependence, unspecified, uncomplicated; Z90.89 Acquired absence of other organs; Z88.8 Allergy status to other drugs, medicaments and biological substances
CPT/HCPCS: 36415; 80048; 80164; 80307; 81001; 82150; 83690; 84075; 84450; 84460; 85025; 99284; J7030; 80320; G0480